=== PATIENT | female | born 2000 | race Caucasian/White ===

== ENCOUNTER 2019-10-23 08:25 | Emergency (ER) | payer MEDICAID, SELFPAY ==
[2019-10-23 08:28] VITALS: BP 136/82; PULSE 84; RESP 18; TEMP 36.4; O2SAT 98; BMI 34.3
--- NOTE | 2019-10-23 08:28 | ED_ITS ---
HPI - Ear Problem General: Chief complaint: Ear Stated complaint: TWO EAR ACHE Time Seen by Provider: 10/23/19 08:28 Source: patient Mode of arrival: ambulatory Limitations: no limitations History of Present Illness: HPI Narrative: Patient comes in today with bilateral ear discomfort and drainage. Patient states symptoms started about 4 days ago. Patient has also had cough and sinus drainage. Patient appears well. Patient appears in mild pain. Associated symptoms: Reports ear or mastoid pain (both, worse on right) Review of Systems General: Reports: 10 or more systems reviewed and unremarkable except in HPI and below ENMT: Reports: ear pain (both, worse on right), ear discharge (both) and Change in hearing (decrease on right) Resp: Reports: non-productive cough PFSH ED PFSH: Statuses (acute, chronic, etc) shown below reflect problem list status as previously entered and may not be historically accurate Social History Smoking and tobacco status: current every day smoker Physical Exam Const: COMMON NORMALS: no apparent distress and oriented x3 GENERAL APPEARANCE: cooperative HENMT: COMMON NORMALS: normocephalic and external nose normal HEAD & SCALP: normal to inspection and normocephalic FACE & SINUS: normal facial exam NOSE: external nose normal GENERAL EAR: hearing not grossly impaired EXTERNAL EAR: Yes external ear abnormal (right external auricle around canal swollen) EXTERNAL AUDITORY CANAL: EAC abnormal (swelling and redness on right side, pusutle noted outer canal at 6 o'clock ) TYMPANIC MEMBRANE: TM abnormal TM laterality: right (obscurred visulaization due to canal drainage) Details: dull and erythematous and left (dull and red with effusion) MOUTH: oral and palatal mucosa normal THROAT: posterior oropharynx normal Eye: COMMON NORMALS: PERRL and EOMs intact bilaterally PUPIL: Yes PERRL Neck/C-Spine: COMMON NORMALS: full ROM and no lymphadenopathy Lymph: LYMPHATIC: no lymphedema noted Chest: COMMONS NORMALS: inspection of chest normal and palpation of chest normal Resp: COMMON NORMALS: normal respiratory effort and clear to auscultation bilaterally AUSCULTATION: clear to auscultation bilaterally Cardio: COMMON NORMALS: regular rate and regular rhythm RATE: regular rate RHYTHM: regular rhythm GI: COMMON NORMALS: normal to inspection, nondistended, normoactive bowel sounds and non-tender : COMMON NORMALS: Yes no CVA tenderness BLADDER/KIDNEY EXAM: Yes no CVA tenderness Back/Pelvis: COMMON NORMALS: no CVA tenderness and thoracic and lumbar spine normal to inspection Extremity: COMMON NORMALS: normal to inspection GENERAL: No edema Neuro: COMMON NORMALS: oriented x3, moves all extremities and no focal motor deficits Psych: COMMON NORMALS: mental status grossly normal and cooperative Skin: COMMON NORMALS: no rashes or lesions noted GENERAL SKIN EXAM: no rashes or lesions noted Course Vital Signs: Vital signs: Vital Signs Temperature 97.6 F 10/23/19 08:28 Pulse Rate 90 10/23/19 08:42 Respiratory Rate 16 10/23/19 08:42 Blood Pressure 129/83 10/23/19 08:42 Pulse Oximetry 99 10/23/19 08:42 MDM - Ear MDM Narrative: Medical decision making narrative: Patient comes in today for concerns of bilateral ear pain for the last 4 days. On exam patient has redness to the ear canal with swelling and drainage on the right side, minimal visualization of the TM is noted. The left ear canal is clear with noticeable redness and dullness to the tympanic membrane. Also noted in the left ear canal on the outer edge is a pustule that is open and draining purulent fluid. Differential diagnosis includes otitis externa, otitis media, sinusitis, cellulitis, abscess, inclusion of cyst. Reviewed exam with patient recommended treatment with oral antibiotics of Bactrim twice a day for 10 days, and Cortisporin otic drops. Patient reports understanding agreed with plan and need for follow-up in 1 week. Or return to the ER as needed. Discharge Plan Discharge Patient Disposition: Home, Self-Care Clinical Impression: Otitis externa Qualifiers: Otitis externa type: diffuse Chronicity: acute Laterality: right Qualified Code(s): H60.311 - Diffuse otitis externa, right ear Otitis media Qualifiers: Otitis media type: suppurative Chronicity: acute Laterality: left Recurrence: not specified as recurrent Spontaneous tympanic membrane rupture: without spontaneous rupture Qualified Code(s): H66.002 - Acute suppurative otitis media without spontaneous rupture of ear drum, left ear Condition: Stable Prescriptions: New Cortisporin-TC 3.3-3-10-0.5 mg/mL drops,suspension 4 drop EAR-BOTH QID Qty: 10 RF: 0 Bactrim DS 800-160 mg tablet 1 tab PO BID 10 Days Qty: 20 RF: 0 No Action 28 mg iron- 800 mcg Tablet 1 tab PO DAILY RF: 0 Discharge Orders: Discharge Order (Routine); Ordered 10/23/19 Ordered By: Aaron Valenzuela Referrals: Andreas Cherry MD [Family Provider] - Discharge Diet: Usual diet Discharge Activity: Resume usual activity Patient Instructions: Otitis Externa (ED) Activity Restrictions/Additional Instructions: Use medications as directed Drink plenty of fluids with medications Keep ears dry with hair pulled back Follow-up with primary care in one week Return to ER for high fever or new concerns Coding Level of Care Code ED Customer Contact Specialist for Jeramy Fwd Exam Problem Focused
[2019-10-23 08:42] VITALS: BP 129/83; PULSE 90; RESP 16; O2SAT 99
== END 2019-10-23 08:55 | disposition home or self-care (01) ==
PROVIDERS: Emergency Provider Nurse Practitioner Family; Family Provider Family Medicine
DX: H66.002 Acute suppurative otitis media without spontaneous rupture of ear drum, left ear (principal); H60.311 Diffuse otitis externa, right ear; F17.210 Nicotine dependence, cigarettes, uncomplicated
CPT/HCPCS: 99281

== ENCOUNTER 2019-12-03 05:31 | Emergency (ER) | payer MEDICAID, SELFPAY ==
[2019-12-03 05:43] VITALS: BP 141/92; PULSE 108; RESP 16; O2SAT 98; BMI 34.3
--- NOTE | 2019-12-03 05:56 | ED_ITS ---
HPI - General Adult General: Chief complaint: General Medical Stated complaint: R THUMB SWELLING Time Seen by Provider: 12/03/19 05:49 Source: patient Mode of arrival: ambulatory Limitations: no limitations History of Present Illness: HPI narrative: 19 yo female who has had right thumb pain and swelling over the last 2 days. pt has a paronychia to right thumb. denies any fevers. denies any worsening or imprving factors. Location: right and upper extremity Radiation: non-radiation Severity: moderate Severity scale (1-10): 5 Quality: sharp Pain Consistency: constant Relieving factors: none Exacerbating factors: none Associated symptoms: Deny chest pain, dyspnea, headache(s), nausea, rash or vomiting Review of Systems Const: Denies: fever, chills, body aches or change in appetite Eyes: Denies: blurry vision or eye discomfort ENMT: Denies: throat pain or dental pain Card: Denies: chest pain Resp: Denies: shortness of breath GI: Denies: abdominal pain, nausea, vomiting or diarrhea : Denies: painful urination Musc: Denies: neck pain or back pain Skin/Breast: Denies: rash Neuro: Denies: headache Psych: Denies: depression Dannie/Lymph: Denies: easy bruising All/Imm: Denies: hives PFSH ED PFSH: Social History Smoking and tobacco status: current every day smoker Female Reproductive History: Date of last menstrual period: 10/21/19 Physical Exam Const: COMMON NORMALS: no apparent distress, oriented x3 and healthy appearing HENMT: COMMON NORMALS: normocephalic and head/scalp atraumatic HEAD & SCALP: normocephalic and atraumatic Eye: COMMON NORMALS: PERRL and EOMs intact bilaterally PUPIL: Yes PERRL Neck/C-Spine: COMMON NORMALS: full ROM and supple Chest: COMMONS NORMALS: inspection of chest normal and palpation of chest normal Resp: COMMON NORMALS: normal respiratory effort, no retractions, no use of accessory muscles and clear to auscultation bilaterally AUSCULTATION: clear to auscultation bilaterally Cardio: COMMON NORMALS: regular rate, regular rhythm and no murmurs RATE: regular rate RHYTHM: regular rhythm GI: COMMON NORMALS: normal to inspection, nondistended, normoactive bowel sounds, soft to palpation, non-tender and no masses PALPATION: Yes soft Extremity: COMMON NORMALS: normal to inspection and full ROM Neuro: COMMON NORMALS: oriented x3, moves all extremities and no focal motor deficits Psych: COMMON NORMALS: mental status grossly normal, thought process normal and cooperative THOUGHT PROCESS: normal thought process Skin: COMMON NORMALS: no rashes or lesions noted and no wounds GENERAL SKIN EXAM: no rashes or lesions noted OTHER: paronychia to right thumb Procedures Abscess I/D Site: hand Side (if applicable): right Local Anesthetic: bupivacaine 0.5% Amount of anesthesia used (mL): 10 Technique: incised with #11 blade Amount of fluid expressed (mL): 2 Course Vital Signs: Vital signs: Vital Signs Pulse Rate 108 H 12/03/19 05:43 Respiratory Rate 16 12/03/19 05:43 Blood Pressure 141/92 12/03/19 05:43 Pulse Oximetry 98 12/03/19 05:43 MDM - General Adult MDM Narrative: Medical decision making narrative: pt presents here with a paronychia of her right thumb. Pt had the paronychia incised and drained. s he tolerated well. will place on bactrim. She is to follow up with her pcp in 2-4 days and return if worsening. Discharge Plan Discharge Patient Disposition: Home, Self-Care Condition: Stable Prescriptions: New Bactrim DS 800-160 mg tablet 1 tab PO BID 10 Days Qty: 20 RF: 0 EC-Naprosyn 500 mg tablet,delayed release (DR/EC) 500 mg PO BID PRN (Reason: pain) Qty: 20 RF: 0 No Action 28 mg iron- 800 mcg Tablet 1 tab PO DAILY RF: 0 Cortisporin-TC 3.3-3-10-0.5 mg/mL drops,suspension 4 drop EAR-BOTH QID Qty: 10 RF: 0 Discharge Orders: Discharge Order (Routine); Ordered 12/03/19 Ordered By: Renu Johnosn Referrals: Andreas Cherry MD [Family Provider] - 4-7 days Discharge Diet: Advance as tolerated Discharge Activity: Resume usual activity Patient Instructions: Paronychia (ED) Coding Level of Care Code ED Psychology Clinician for Chg Fwd Exam Comprehensive
--- NOTE | 2019-12-03 06:12 | PC.NURSE ---
Received patient to Er with complaint of painful, red right thumb that started yesterday. Redness is on the medial nail bed with good sensation but is swollen.
[2019-12-03 06:21] VITALS: BP 132/84; PULSE 88; RESP 14; O2SAT 99
== END 2019-12-03 06:22 | disposition home or self-care (01) ==
PROVIDERS: Emergency Provider Emergency Medicine; Family Provider Family Medicine
DX: L03.011 Cellulitis of right finger (principal); F17.200 Nicotine dependence, unspecified, uncomplicated
CPT/HCPCS: 10060; 99281; 99282

== ENCOUNTER 2020-01-02 23:08 | Emergency (ER) | payer MEDICAID, SELFPAY ==
[2020-01-02 23:13] VITALS: BP 117/85; PULSE 94; RESP 16; TEMP 36.6; O2SAT 97; BMI 36.6
--- NOTE | 2020-01-02 23:21 | ED_ITS ---
HPI - Abdominal Pain General: Chief Complaint: Abdominal Pain Stated Complaint: Abd Pain, N/V Time Seen by Provider: 01/02/20 23:17 Source: patient Mode of arrival: ambulatory Limitations: no limitations History of Present Illness: HPI narrative: Patient comes in with nausea and vomiting starting this evening. Patient reports diffuse abdominal pain. Patient appears mildly unwell. Patient appears in no pain. Patient reports that she may be . Patient denies any fever, blood in the stool or vomit. Patient feels like she is going to have diarrhea but does not have any at this time. Associated Symptoms: Reports nausea and vomiting Related Data: Date of Last Menstrual Period: 10/21/19 Review of Systems General: Reports: 10 or more systems reviewed and unremarkable except in HPI and below GI: Reports: nausea and vomiting PFSH ED PFSH: Social History Smoking and tobacco status: current every day smoker Female Reproductive History: Date of last menstrual period: 10/21/19 Physical Exam Const: COMMON NORMALS: no apparent distress and oriented x3 GENERAL APPEARANCE: cooperative HENMT: COMMON NORMALS: normocephalic, external ears normal, EAC's normal, TM's normal bilaterally and external nose normal HEAD & SCALP: normal to inspection and normocephalic FACE & SINUS: normal facial exam NOSE: external nose normal GENERAL EAR: hearing not grossly impaired EXTERNAL EAR: Yes external ears normal EXTERNAL AUDITORY CANAL: EAC's normal TYMPANIC MEMBRANE: TM's normal bilaterally MOUTH: oral and palatal mucosa normal THROAT: posterior oropharynx normal Eye: COMMON NORMALS: PERRL and EOMs intact bilaterally PUPIL: Yes PERRL Neck/C-Spine: COMMON NORMALS: full ROM and no lymphadenopathy Lymph: LYMPHATIC: no lymphedema noted Chest: COMMONS NORMALS: inspection of chest normal and palpation of chest normal Resp: COMMON NORMALS: normal respiratory effort and clear to auscultation bilaterally AUSCULTATION: clear to auscultation bilaterally Cardio: COMMON NORMALS: regular rate and regular rhythm RATE: regular rate RHYTHM: regular rhythm GI: COMMON NORMALS: soft to palpation PALPATION: Yes soft and Yes tender (mild tenderness, non specific) : COMMON NORMALS: Yes no CVA tenderness BLADDER/KIDNEY EXAM: Yes no CVA tenderness Back/Pelvis: COMMON NORMALS: no CVA tenderness and thoracic and lumbar spine normal to inspection Extremity: COMMON NORMALS: normal to inspection GENERAL: No edema Neuro: COMMON NORMALS: oriented x3, moves all extremities and no focal motor deficits Psych: COMMON NORMALS: mental status grossly normal and cooperative Skin: COMMON NORMALS: no rashes or lesions noted GENERAL SKIN EXAM: no rashes or lesions noted Course Vital Signs: Vital signs: Vital Signs Temperature 97.9 F 01/02/20 23:13 Pulse Rate 94 01/02/20 23:13 Respiratory Rate 16 01/02/20 23:13 Blood Pressure 117/85 01/02/20 23:13 Pulse Oximetry 97 01/02/20 23:13 MDM - Abdominal Pain MDM Narrative: Medical decision making narrative: Patient comes in this evening with complaints of nausea and vomiting and abdominal discomfort. Exam notes abdomen is soft with some mild tenderness on deep palpation. Patient has hyperactive bowel sounds. Skin is warm and dry color is pink. Vital signs are normal. Differential diagnosis includes gastroenteritis, colitis, urinary tract infection, dehydration. Laboratory values were normal or insignificant. Urinalysis was contaminated with large amount of skin cells. Recommended patient drink plenty of fluids we treated her with 1 L of IV fluid and ondansetron and 1 Lomotil patient had good results and denied any further pain after treatment. Recommended patient go home eat a light diet and return to the ER as needed for high fever or worsening symptoms. Patient reported understanding agreed to plan. Lab Data: Labs: Lab Results 01/02/20 01/02/20 01/02/20 Range/Units 23:22 23:22 23:22 WBC 6.8 (4.5-13.0) 10^3/ uL RBC 4.87 (4.1-5.3) 10^6/u L Hgb 13.3 (11.5-15.3) g/dL Hct 43.0 (37.0-47.0) % MCV 88.3 (81-99) fL MCH 27.3 L (28.0-34.0) pg MCHC 30.9 (30.0-36.0) g/dL RDW 13.2 (12.1-15.1) % Plt Count 284 (130-400) 10^3/c mm MPV 9.8 (7.4-10.4) fL Neut % (Auto) 74.5 % Lymph % (Auto) 12.5 % Sequoyah % (Auto) 10.2 % Eos % (Auto) 2.2 % Baso % (Auto) 0.3 % Neut # (Auto) 5.1 (1.8-8.0) 10^3/u L Lymph # (Auto) 0.9 L (1.5-6.5) 10^3/u L Sequoyah # (Auto) 0.7 (0.2-0.9) 10^3/u L Eos # (Auto) 0.2 (0.0-0.8) 10^3/u L Baso # (Auto) 0.0 (0.0-0.1) 10^3/u L Nucleated RBC % (a uto) 0 % Nucleated RBCs # 0.0 /100WBC Sodium 138 (136-145) mmol/L Potassium 3.8 (3.5-5.1) mmol/L Chloride 101 (98-107) mmol/L Carbon Dioxide 29 (22-29) mmol/L Anion Gap 11.8 (5-19) BUN 7 (6-20) mg/dL Creatinine 0.6 (0.5-0.9) mg/dL GFR Calculation 127.5 (90-130) mL/min Glucose 127 H (65-115) mg/dL Calculated Osmolal ity 283 L (285-295) mOsm/k g Calcium 9.5 (8.5-10.5) mg/dL Total Bilirubin 0.5 (0.15-1.2) mg/dL AST 24 (0-32) U/L ALT 35 H (0-33) U/L Alkaline Phosphata se 92 (35-105) IU/L Total Protein 8.0 (6.6-8.7) g/dL Albumin 4.1 (3.5-5.2) g/dL Globulin 3.9 (1.3-4.6) g/dL Lipase 5 L (13-60) U/L HCG, Qual Negative (Negative) Urine Color (Yellow) Urine Appearance (CLEAR) Urine pH (5-7) Ur Specific Gravit y (1.005-1.030) Urine Protein (Negative) Urine Glucose (UA) (Normal) Urine Ketones (Negative) Urine Blood (Negative) Urine Nitrate (Negative) Urine Bilirubin (NEGATIVE) Urine Urobilinogen (Negative) mg/dL Ur Leukocyte Reema ase (Negative) Urine RBC (0-2) /hpf Urine WBC (0-5) /hpf Ur Squamous Epith Cells (0-5) Urine Bacteria (NONE) 01/03/20 Range/Units 00:14 WBC (4.5-13.0) 10^3/ uL RBC (4.1-5.3) 10^6/u L Hgb (11.5-15.3) g/dL Hct (37.0-47.0) % MCV (81-99) fL MCH (28.0-34.0) pg MCHC (30.0-36.0) g/dL RDW (12.1-15.1) % Plt Count (130-400) 10^3/c mm MPV (7.4-10.4) fL Neut % (Auto) % Lymph % (Auto) % Sequoyah % (Auto) % Eos % (Auto) % Baso % (Auto) % Neut # (Auto) (1.8-8.0) 10^3/u L Lymph # (Auto) (1.5-6.5) 10^3/u L Sequoyah # (Auto) (0.2-0.9) 10^3/u L Eos # (Auto) (0.0-0.8) 10^3/u L Baso # (Auto) (0.0-0.1) 10^3/u L Nucleated RBC % (a uto) % Nucleated RBCs # /100WBC Sodium (136-145) mmol/L Potassium (3.5-5.1) mmol/L Chloride (98-107) mmol/L Carbon Dioxide (22-29) mmol/L Anion Gap (5-19) BUN (6-20) mg/dL Creatinine (0.5-0.9) mg/dL GFR Calculation (90-130) mL/min Glucose (65-115) mg/dL Calculated Osmolal ity (285-295) mOsm/k g Calcium (8.5-10.5) mg/dL Total Bilirubin (0.15-1.2) mg/dL AST (0-32) U/L ALT (0-33) U/L Alkaline Phosphata se (35-105) IU/L Total Protein (6.6-8.7) g/dL Albumin (3.5-5.2) g/dL Globulin (1.3-4.6) g/dL Lipase (13-60) U/L HCG, Qual (Negative) Urine Color Yellow (Yellow) Urine Appearance Cloudy (CLEAR) Urine pH 6 (5-7) Ur Specific Gravit y 1.025 (1.005-1.030) Urine Protein Neg (Negative) Urine Glucose (UA) Norm (Normal) Urine Ketones Negative (Negative) Urine Blood 2+ H (Negative) Urine Nitrate Negative (Negative) Urine Bilirubin Neg (NEGATIVE) Urine Urobilinogen 8 H (Negative) mg/dL Ur Leukocyte Reema ase 2+ H (Negative) Urine RBC 5-10 H (0-2) /hpf Urine WBC 55-80 H (0-5) /hpf Ur Squamous Epith Cells 25-40 H (0-5) Urine Bacteria 1+ H (NONE) Discharge Plan Discharge Patient Disposition: Home, Self-Care Clinical Impression: Gastroenteritis Condition: Stable Prescriptions: New ondansetron HCl 4 mg tablet 4 mg PO Q8H PRN (Reason: nausea and vomiting) Qty: 7 RF: 0 Lomotil 2.5-0.025 mg tablet 1 tab PO Q8H PRN (Reason: diarrhea) Qty: 6 RF: 0 Referrals: Andreas Cherry MD [Family Provider] - Discharge Diet: Advance as tolerated Discharge Activity: Resume usual activity Patient Instructions: Gastroenteritis (ED) Activity Restrictions/Additional Instructions: drink plenty of fluids increase diet as tolerated Avoid greasy, spicy, acidic foods Try clear liquid diet for the next increase slowly to a bland diet over the next three days then return to normal diet Follow-up with primary care in one week as needed Return to ER for high fever, or blood in stool or vomit Coding Level of Care Code ED Gum Rolling Machine Operator for Marileeg Fwd Exam Comprehensive
[2020-01-02 23:32] LABS: Basophils % 0.3 %; Eosinophils # 0.2 10^3/uL (0.0-0.8); Eosinophils % 2.2 %; Hemoglobin 13.3 g/dL (11.5-15.3); Lymphocytes # 0.9 10^3/uL (1.5-6.5); Lymphocytes % 12.5 %; Mean Corpuscular HGB Conc 30.9 g/dL (30.0-36.0); Mean Corpuscular Hemoglobin 27.3 pg (28.0-34.0); Mean Corpuscular Volume 88.3 fL (81-99); Mean Platelet Volume 9.8 fL (7.4-10.4); Monocytes # 0.7 10^3/uL (0.2-0.9); Monocytes % 10.2 %; Neutrophils # 5.1 10^3/uL (1.8-8.0); Neutrophils % 74.5 %; Nucleated Red Blood Cells % 0 %; Platelet Count 284 10^3/cmm (130-400); Red Blood Count 4.87 10^6/uL (4.1-5.3); Red Cell Distribution Width 13.2 % (12.1-15.1); White Blood Count 6.8 10^3/uL (4.5-13.0)
[2020-01-02] MEDS: diphenoxylate/atropine Tablet 1 TAB PO (23:33)
[2020-01-02] MEDS: ondansetron 2 mg/ML SDV 2 mL 4 MG IVP (23:33)
[2020-01-02] MEDS: sodium chloride 0.9% 1,000 ML 999 ML IV (23:34)
--- NOTE | 2020-01-02 23:38 | PC.NURSE ---
Introduced self to patient and initiated vital signs. Patient presents A&O x 4. NAD, ABCs intact, MAEW and agreeable to treatment. Respirations are even and unlabored. Pt states that the chief complaint for the ER visit today is due to abdominal pain which presented at approximately 1000. Pt denies any vision disturbances or lightheadedness. Bed left in lowest position in semi-fowlers with side rails up.Reassured patient of needs and will continue to monitor.
[2020-01-02 23:43] VITALS: BP 125/96; O2SAT 98
[2020-01-02 23:45] VITALS: BP 114/72; O2SAT 99
[2020-01-02 23:45] LABS: HCG, Serum Qual Negative (Negative)
[2020-01-02 23:50] VITALS: BP 114/72; O2SAT 98
[2020-01-02 23:55] VITALS: BP 114/72; O2SAT 99
[2020-01-02 23:56] LABS: Alanine Aminotransferase 35 U/L (0-33); Albumin Level 4.1 g/dL (3.5-5.2); Alkaline Phosphatase 92 IU/L (35-105); Anion Gap 11.8 (5-19); Aspartate Amino Transferase 24 U/L (0-32); Blood Urea Nitrogen 7 mg/dL (6-20); Calcium 9.5 mg/dL (8.5-10.5); Carbon Dioxide 29 mmol/L (22-29); Chloride 101 mmol/L (98-107); Creatinine Clr Calc Pharmacy 156.6531; Globulin 3.9 g/dL (1.3-4.6); Glomerular Filtration Rate 127.5 mL/min (90-130); Glucose 127 mg/dL (65-115); Lipase 5 U/L (13-60); Osmolality Calculated 283 mOsm/kg (285-295); Potassium 3.8 mmol/L (3.5-5.1); Sodium 138 mmol/L (136-145); Total Bilirubin 0.5 mg/dL (0.15-1.2)
[2020-01-03] VITALS (11 sets, daily range): BP systolic 117–131; BP diastolic 64–86; O2SAT 95–100
[2020-01-03 00:37] LABS: Glucose Urine UA Norm (Normal); Ketones Urine Negative (Negative); Protein Urine Neg (Negative); Specific Gravity, Urine 1.025 (1.005-1.030); Urine Appearance Cloudy (CLEAR); Urine Color Yellow (Yellow); pH Urine 6 (5-7)
[2020-01-03 00:38] LABS: Add Urine Culture? No; Add Urine Microscopic? YES; Bacteria Urine 1+; Bilirubin Urine Neg (NEGATIVE); Blood Urine 2+ (Negative); Leukocyte Esterase Urine 2+ (Negative); Nitrate Urine Negative (Negative); Squamous Epithelial Cell Urine 25-40 (0-5); Urobilinogen Urine 8 mg/dL (Negative); WBC Urine 55-80 /hpf (0-5)
== END 2020-01-03 01:01 | disposition home or self-care (01) ==
PROVIDERS: Emergency Provider Nurse Practitioner Family; Family Provider Family Medicine
DX: K52.9 Noninfective gastroenteritis and colitis, unspecified (principal); F17.200 Nicotine dependence, unspecified, uncomplicated
CPT/HCPCS: 12345; 80053; 81001; 83690; 84703; 85025; 96361; 96374; 99283; J2405; J7030

== ENCOUNTER 2020-12-07 22:54 | Outpatient (CLI) | payer MEDICAID, SELFPAY ==
[2020-12-07 23:22] VITALS: BP 127/73; PULSE 114; RESP 15; TEMP 36.6
[2020-12-07 23:23] VITALS: BMI 35.0
[2020-12-07 23:56] VITALS: BP 119/71; PULSE 115
[2020-12-08 00:04] VITALS: BP 120/74; PULSE 117
[2020-12-08 00:15] LABS: Urine Appearance Cloudy (CLEAR); Urine Color Yellow (Yellow); pH Urine 7 (5-7)
[2020-12-08 00:16] LABS: Bilirubin Urine Neg (Negative); Blood Urine Neg (Negative); Glucose Urine UA Norm (Normal); Ketones Urine Negative (Negative); Leukocyte Esterase Urine Trace (Negative); Nitrate Urine Negative (Negative); Protein Urine Neg (Negative); Urobilinogen Urine 1 mg/dL (Negative)
[2020-12-08 00:17] LABS: Bacteria Urine 1+ /hpf; RBC Urine 0-4 /hpf (0-2); WBC Urine 0-4 /hpf (0-5)
[2020-12-08 00:19] VITALS: BP 124/76; PULSE 121
[2020-12-08 00:21] VITALS: PULSE 119; O2SAT 97
[2020-12-08 00:22] LABS: Squamous Epithelial Cell Urine 25-40 /hpf (0-5)
[2020-12-08 00:34] VITALS: BP 125/74; PULSE 125
[2020-12-08 00:43] VITALS: BP 120/70; PULSE 121
[2020-12-08 01:00] VITALS: BP 120/70; PULSE 121; RESP 16; TEMP 36.6; O2SAT 97
== END 2020-12-08 01:05 | disposition home or self-care (01) ==
LOC: OPOB 22:55 → OBGYN 23:01
PROVIDERS: PCP Family Medicine; Visit Provider Family Medicine
DX: O26.899 Other specified pregnancy related conditions, unspecified trimester (principal); Z3A.00 Weeks of gestation of pregnancy not specified; R10.9 Unspecified abdominal pain
CPT/HCPCS: 59025; 81001; 99211

== ENCOUNTER 2021-01-16 14:56 | Inpatient (IN) | payer MEDICAID, SELFPAY ==
[2021-01-16] VITALS (22 sets, daily range): BP systolic 118–182; BP diastolic 71–115; PULSE 85–131; RESP 18; TEMP 35.9–36.7; BMI 38.6
[2021-01-16 15:39] LABS: Basophils # 0.1 10^3/uL (0.0-0.1); Basophils % 0.5 %; Eosinophils # 0.2 10^3/uL (0.0-0.8); Eosinophils % 0.9 %; Hematocrit 36.6 % (37.0-47.0); Hemoglobin 11.3 g/dL (11.5-15.3); Lymphocytes # 2.7 10^3/uL (0.8-4.8); Lymphocytes % 16.3 %; Mean Corpuscular HGB Conc 30.9 g/dL (30.0-36.0); Mean Corpuscular Volume 87.4 fL (81-99); Mean Platelet Volume 11.4 fL (7.4-10.4); Monocytes # 1.3 10^3/uL (0.2-0.9); Monocytes % 7.4 %; Neutrophils # 12.01 10^3/uL (1.8-7.7); Neutrophils % 71.3 %; Nucleated Red Blood Cells % 0.2 %; Platelet Count 377 10^3/cmm (130-400); Red Blood Count 4.19 10^6/uL (4.1-5.3); Red Cell Distribution Width 14.3 % (12.1-15.1); White Blood Count 16.8 10^3/uL (4.0-10.0)
[2021-01-16 15:49] LABS: Amphetamines Screen Urine Positive (Negative); Barbiturates Screen Urine Negative (Negative); Benzodiazepines Screen Urine Negative (Negative); Cocaine Screen Urine Negative (Negative); Opiate Screen Urine Negative (Negative); PCP Screen Urine Negative (Negative); THC Screen Urine Negative (Negative)
--- NOTE | 2021-01-16 17:01 | PC.RESP ---
Smoking Cessation information sent to patient.
[2021-01-16] MEDS: lactated ringers 1,000 ML 999 ML IV (17:08)
[2021-01-16] MEDS: oxytocin 30 UNIT/500 ML BAG 600 UNIT IV (17:27)
[2021-01-16] MEDS: fentaNYL 50 mcg/mL INJ 2mL 100 MCG IVP ×2 (17:46→18:08)
[2021-01-16] MEDS: lidocaine 2% INJ 20 mL INJECTION (17:46)
--- NOTE | 2021-01-16 18:21 | PM.ACPR ---
Procedure/Consent Time out: Time Out Performed: No (The procedure was emergent, and there was not time for a proper timeout.) Procedure Narrative: Dr. Cherry contacted me after an unremarkable delivery of the patient's . The patient is a 20-year-old 2 at 40 weeks and 3 days then unremarkable delivery. After delivery, delivered the placenta. Unfortunately the placenta was only partially delivered. He then attempted to manually extract the placenta. He was able to partially remove the placenta but there was still some part of the placenta that was adherent to the fundus of the of the uterus. I was contacted immediately came to the hospital. I then manually extracted the placenta. After 3 attempts, I was able to remove any remaining placental tissue that I could palpate. I will to palpate all portions of the intrauterine cavity. There was some ratty uterine tissue in the fundus, but no apparent placental tissue. I made one final pass and once again felt no further placental tissue. The bleeding was remarkably minimal during the procedure. The patient had received 100 mcg of fentanyl prior to the procedure. I also gave her 50 mcg of fentanyl as I was finishing up the procedure. Acute Procedures Epistaxis Control: Time out performed: No (The procedure was emergent, and there was not time for a proper timeout.)
--- NOTE | 2021-01-16 18:23 | P.PCNOB_ITS ---
Delivery Note: Date of delivery: January 16, 2021 This 20-year-old 2 now para 2 female with an EDC of 01/14/2021 was seen in the office on the day of delivery and found to be 4 cm dilated and 90+ percent effaced. She was sent to the OB department at [facility] and was yulissa regularly. She quickly dilated to complete her cervical dilatation after spontaneous rupture membranes. The fluid was moderately meconium-stained. At complete cervical dilatation this physician arrived and we pushed for several minutes prior to delivery by spontaneous vaginal livery healthy, viable male . Upon delivery of the head the mouth and nose were suctioned at the perineum following by delivery of the right shoulder followed by the left shoulder posteriorly. There was a nuchal cord x1 which was reduced easily prior to delivery of the shoulders. Cord had 3 blood vessels. The infant was then suctioned again prior to laying the infant on mother's abdomen. The cried well shortly after that. Infant Apgars were 8 and 9 at 1 and 5 minutes respectively and the weighed 7 pounds 10 ounces. After several minutes of moderate traction on the umbilical cord the cord from the placenta and the placenta remained in the room. The patient was given fentanyl a total of 100 mcg and an attempt was made at manual removal of the placenta. The placenta appeared to be adhered at the apex of the uterus and part of the placenta was delivered with some difficulty. At that time this physician had a concern of a possible accreta and Dr. Mitchell was consulted for possible dilatation and curettage. He arrived and with a little bit of work was able to bring what is felt like all the placenta completely out. Please see his note for details. The patient had a very small second-degree midline vaginal with minimal perineal laceration which was repaired with local anesthesia and Vicryl suture. The infant picked up pretty well but began having tachypnea and was found to have oxygen saturations in the mid 80s. This improved with oxygen via CPAP. Presently, however the nurses report baby is completely off oxygen and skin to skin with oxygen saturations in the upper 90s. Estimated blood loss approximately 432 mL. It should be noted that mom's drug screen was positive for amphetamine on admission. Pre-Delivery Course: This patient was followed by this physician throughout her course with no significant problems. However, she was somewhat irregular in showing up to her appointments. She also had a positive urine drug screen for amphetamine maternal blood type was O+ with antibody screen negative. Hepatitis B, hepatitis C, RPR are negative. Rubella is positive and group B strep was negative. Covid testing is pending. Delivery: Spontaneous vaginal delivery with complication of retained placenta. Post-Delivery Status: Patient is presently doing extremely well with minimal bleeding at most. Fundus appears to be firm at this time. A&P Assessment and plan (1) Normal spontaneous vaginal delivery: Patient did well with delivery process and no anesthesia. She had a very small second-degree vaginal laceration was repaired easily with Vicryl suture and local anesthesia. Status: Acute (2) Retained placenta or amniotic membrane after delivery without hemorrhage: Several minutes after delivery, the umbilical cord from the placenta. A manual extraction was attempted by this physician and I was able to remove part of the placenta but not the entire placenta. The placenta was tightly adhered to the apex of the uterus. Dr. Mitchell was consulted for possible dilatation and curettage. However, he was able to come in and slowly manipulate the remainder of the placenta away from the uterine wall. This juan eared to be successful as she not bleeding and will be monitored closely for further bleeding. The patient received approximately 150 mcg of fentanyl for this procedure. Status: Acute Coding Level of Care Code Acute Trade Show Coordinator for Chg Fwd Diagnoses Normal spontaneous vaginal delivery O80 Retained placenta or amniotic membrane after delivery without hemorrhage O73.1
[2021-01-16] MEDS: ibuprofen 800 mg tablet PO (21:40)
[2021-01-16] MEDS: ampicillin 2,000 MG in sodium chloride 0.9% (plus) 50 ML 100 MG IV (21:40)
[2021-01-16] MEDS: benzocaine-menthol 78 gm Canister 1 SPRAY TOPICAL (21:41)
[2021-01-17] VITALS (11 sets, daily range): BP systolic 122–144; BP diastolic 63–87; PULSE 69–103; RESP 14–16; TEMP 36.1–36.5
--- NOTE | 2021-01-17 00:55 | PC.NURSE ---
This RN rounded on pt and infant, found pt in bed with eyes closed holding . This RN attempted to rouse pt, pt opened her eyes, she was educated about not falling asleep in the bed with infant. Infant was placed in the warmer.
[2021-01-17 06:28] LABS: Hematocrit 29.3 % (37.0-47.0); Hemoglobin 8.9 g/dL (11.5-15.3); Mean Corpuscular HGB Conc 30.4 g/dL (30.0-36.0); Mean Corpuscular Volume 88.8 fL (81-99); Mean Platelet Volume 11.1 fL (7.4-10.4); Platelet Count 329 10^3/cmm (130-400); Red Cell Distribution Width 14.1 % (12.1-15.1); White Blood Count 19.7 10^3/uL (4.0-10.0)
--- NOTE | 2021-01-17 07:28 | PM.PN ---
Subjective Subjective: Interval history: The patient has done well overnight. She has had no significant bleeding or tenderness. She has had no fever. She did receive one 2 g dose of ampicillin last evening. Vitals/I&O/Wt Last Vital Signs Temp 97.0 F L 01/17/21 03:24 Pulse 69 01/17/21 05:37 Resp 18 01/16/21 15:29 BP 122/65 01/17/21 05:37 01/16/21 01/17/21 01/17/21 22:59 06:59 14:59 Intake Total 199.8 / 199.8 1350.2 / 1350.2 Balance 199.8 / 199.8 1350.2 / 1350.2 Weight last 48 hrs Weight 98.883 kg Physical Exam Const: COMMON NORMALS: no acute distress, average body habitus, healthy appearing and well nourished HENMT: COMMON NORMALS: moist oral mucous membranes Resp: COMMON NORMALS: normal respiratory effort, No retractions, No use of accessory muscles and clear to auscultation bilaterally AUSCULTATION: clear to auscultation bilaterally Cardio: COMMON NORMALS: regular rate, regular rhythm and No murmurs present (Cardio) RATE: regular rate RHYTHM: regular rhythm GI: COMMON NORMALS: Normal to inspection, nondistended, normoactive bowel sounds present, Soft to palpation and no masses (Fundus is firm and well below the umbilicus.) PALPATION: Yes Soft to palpation Extremity: COMMON NORMALS: normal to inspection, full ROM and no pedal edema Neuro: COMMON NORMALS: moves all extremities, no focal motor deficits and no sensory deficits noted Psych: COMMON NORMALS: cooperative MOOD & AFFECT: Yes depressed mood and Yes anxious Data : 01/17/21 06:15 A&P Assessment and plan (1) Normal spontaneous vaginal delivery: Presently, the patient is doing well. She has mild lochia and no signs of problems or significant bleeding. Status: Acute (2) Retained placenta or amniotic membrane after delivery without hemorrhage: No signs of recurrent bleeding or infection post manipulation to remove the placenta. Because of the trauma and the possible retained products of conception I feel that it is prudent to keep the patient in the hospital overnight to watch for signs of infection or increased bleeding. Status: Acute (3) Methamphetamine abuse: It is unknown how much methamphetamine this patient abuse through the . She did have a positive drug screen for methamphetamine at her first visit with this physician and again upon arrival to the hospital. I had a long discussion with this patient regarding helping her in getting treatment and staying off of methamphetamine. She was told that she probably will not go home with her secondary to her methamphetamine abuse but if she cooperates and gets into a treatment program and stays off drugs she may very well be able to get the back. Status: Acute Attestations Medical Necessity Statement*: This patient delivered by spontaneous vaginal livery yesterday evening. She had retained placenta and required great manipulation to remove the remainder of the placenta. She is at risk for infection and bleeding and therefore she requires 1 more midnight hospital stay. Time Spent in Patient Care: 16 - 35 minutes Coding Level of Care Code Acute Pathology Transcriptionist for [facility] Diagnoses Normal spontaneous vaginal delivery O80 Retained placenta or amniotic membrane after delivery without hemorrhage O73.1 Methamphetamine abuse F15.10
[2021-01-17] MEDS: ibuprofen 800 mg tablet PO ×3 (09:23→22:56)
[2021-01-17] MEDS: docusate sodium 100 mg Capsule PO ×2 (09:24→19:02)
[2021-01-17] MEDS: prenatal vitamin Capsule 1 CAP PO (09:24)
--- NOTE | 2021-01-17 18:38 | PC.NURSE ---
Significant other was educated if he left the department, he would be unable to return to department. He acknowledged understanding.
--- NOTE | 2021-01-17 18:43 | PC.NURSE ---
Entered patient's bathroom, where she was in the bathroom with the door closed. Knocked on door and patient opened the door at the same time. When this magnetic tape typewriter operator entered the bathroom, it smelled like cigarette smoke. Asked patient if she had been smoking in the bathroom. Patient denied smoking in the bathroom. Asked patient why it smelled like cigarette smoke if she hadn't been smoking in there. Patient shrugged her shoulders. Patient stated she was looking for baby's pacifier. Looked in the patient's radiant warmer and in the chair for baby's pacifier and didn't find it. Entered the patient's bathroom and told her the pacifier was not found. Patient then stated I did take a few drags. Educated patient she could not smoke in the hospital. Asked patient if she still had cigarettes and machine heddle cleaner. Patient stated she did, that it was in a container on the counter. Educated patient I was going to remove her cigarettes and machine heddle cleaner, and it would be returned to her when she was discharged.
[2021-01-18 04:01] VITALS: BP 142/72; PULSE 93; TEMP 36.3
--- NOTE | 2021-01-18 07:10 | PM.OBGYDC ---
Discharge Providers SIGNING TEACHER Date of Admission: 01/16/21 14:56 Date of Discharge: 01/18/21 Attending Provider at Admission: Andreas Cherry MD Attending Provider at Discharge: Andreas Cherry MD Primary Care Provider: Andreas Cherry MD Diagnoses at Discharge Discharge Diagnosis (1) Normal spontaneous vaginal delivery: Status: Acute (2) Retained placenta or amniotic membrane after delivery without hemorrhage: Status: Acute (3) Methamphetamine abuse: Status: Acute Reason for Visit Reason for Visit: Labor Hospital Course Hospital Course This patient delivered by spontaneous vaginal delivery healthy, viable male infant. There were no problems with the labor delivery process. The labor was pretty rapid and she did not receive any anesthesia. She did have partially retained placenta which was eventually retrieved and has done well since that time. She has had no signs of infection and no significant bleeding or cramping. She did test positive for methamphetamine and according to family services she will not be going home with her baby. I have discussed at length with this patient that she needs to be compliant with family services and work with the plan to get off the drugs and stay off the drugs that she wants to get her babies back. Information Peripartum Data: Delivery Method: Vaginal Physical Exam Const: COMMON NORMALS: no acute distress and healthy appearing GENERAL APPEARANCE: cooperative and comfortable HENMT: COMMON NORMALS: moist oral mucous membranes Resp: COMMON NORMALS: normal respiratory effort, No retractions, No use of accessory muscles and clear to auscultation bilaterally AUSCULTATION: clear to auscultation bilaterally Cardio: COMMON NORMALS: regular rate, regular rhythm and No murmurs present (Cardio) RATE: regular rate RHYTHM: regular rhythm GI: COMMON NORMALS: Soft to palpation INSPECTION: Yes normal to inspection PALPATION: Yes Soft to palpation and No Tenderness to palpation present (GI) (Fundus is firm and below the umbilicus.) Extremity: GENERAL: No edema Neuro: COMMON NORMALS: CN's II-XII intact bilaterally, no focal motor deficits and no sensory deficits noted Psych: COMMON NORMALS: mental status grossly normal, cooperative and normal affect (Somewhat flat. This is her baseline.) Discharge Data Data Completed and Pending: Pending at discharge Category Date Time Status Pathology: Surgic al [PTH] Routine Pth 01/16/21 18:38 Received Vitals: Last Vital Signs Temp 97.3 F L 01/18/21 04:01 Pulse 93 01/18/21 04:01 Resp 14 01/17/21 11:35 BP 142/72 01/18/21 04:01 Discharge Plan Discharge Patient Disposition: Home Condition: Stable Prescriptions: New docusate sodium [DOK] 100 mg Capsule 100 mg PO BID Qty: 60 RF: 1 ibuprofen 800 mg Tablet 800 mg PO TID Qty: 90 RF: 2 Continued Prena-Tab 65 mg iron- 1 mg Tablet 1 tab PO DAILY RF: 0 Discontinued ranitidine HCl [Zantac] 150 mg Tablet 150 mg PO PRN RF: 0 Discharge Orders: Discharge Order (Routine); Ordered 01/18/21 Ordered By: Andreas Cherry Referrals: Andreas Cherry MD [Primary Care Provider] - 6 Weeks Discharge Diet: Usual diet Discharge Activity: Resume usual activity Patient Instructions: Depression (GEN), Pre-eclampsia and Eclampsia (DC), Bleeding (DC), OB Discharge Report, OB Food/Drug Interaction Guide, OB Home Care Instructions, OB Care at Home, OB Home Care, OB Vaginal Deliveries Discharge Attestations SIGNING TEACHER Time Spent in Discharge Care*: less than 30 min Specific Discharge Activities: Specific discharge activities: educating patient, documenting/other paperwork and evaluating patient/reviewing data Coding Level of Care Code Acute Disease And Insect Control Boss for [facility] Diagnoses Normal spontaneous vaginal delivery O80 Retained placenta or amniotic membrane after delivery without hemorrhage O73.1 Methamphetamine abuse F15.10
[2021-01-18] MEDS: docusate sodium 100 mg Capsule PO (08:47)
[2021-01-18] MEDS: ibuprofen 800 mg tablet PO (08:47)
[2021-01-18] MEDS: prenatal vitamin Capsule 1 CAP PO (08:47)
[2021-01-18 10:29] VITALS: TEMP 36.8
[2021-01-18 10:30] VITALS: BP 144/74; PULSE 84
[2021-01-18 11:35] VITALS: BP 136/91; PULSE 86; TEMP 35.8
[2021-01-18 11:36] VITALS: BP 138/88; PULSE 75
[2021-01-18 11:38] VITALS: RESP 18
--- NOTE | 2021-01-18 11:41 | PC.NURSE ---
Patient rooming in with baby at this time
== END 2021-01-18 11:40 | disposition home or self-care (01) | DRG 806 ==
LOC: OPOB 14:56 → OBGYN 14:56
PROVIDERS: Admitting Provider Family Medicine; PCP Family Medicine; Visit Provider Family Medicine
DX: O99.324 Drug use complicating childbirth (principal); O72.2 Delayed and secondary postpartum hemorrhage; Z37.0 Single live birth; F15.10 Other stimulant abuse, uncomplicated; O77.0 Labor and delivery complicated by meconium in amniotic fluid; O69.2XX0 Labor and delivery complicated by other cord entanglement, with compression, not applicable or unspecified; O70.1 Second degree perineal laceration during delivery; Z3A.40 40 weeks gestation of pregnancy
CPT/HCPCS: 12345; 36415; 59025; 59409; 80306; 85025; 85027; 88307; 96374; 96375; 99211; J0290; J3010

== ENCOUNTER → 2021-03-29 14:36 | Outpatient (BNVA) | payer MEDICAID, SELFPAY | PROVIDERS: PCP Family Medicine; Visit Provider Psychiatry & Neurology Psychiatry | DX: F15.21 Other stimulant dependence, in remission (principal); F17.200 Nicotine dependence, unspecified, uncomplicated | CPT/HCPCS: 99204 ==

== ENCOUNTER 2021-12-26 13:38 | Outpatient (CLI) | payer MEDICAID, SELFPAY ==
--- NOTE | 2021-12-26 13:46 | US_ITS ---
WS: [id number] ULTRASOUND OB COMPLETE TECHNIQUE: Complete ultrasound. CLINICAL INFORMATION: SUPERVISION OF NORMAL COMPARISON: None. FINDINGS: Closed Cervix measures 4.6 CM. Single interuterine gestation is identified with cephalic presentation. Placenta is posterior. Placenta grade 2. Low normal amniotic fluid volume visually. cardiac activity: 153 BPM. AGA: 32w1d SAL by ultrasound: 02/19/2022 Estimated weight: 1944 g., %. BDP: 7.8 cm = 31w1d HC: 29.7 cm = 32w6d AC: 28.3 cm = 32w3d FEMUR LENGTH: 6.2 cm = 32w2d Anatomic survey:Intracranial contents and posterior fossa not well visualized due to gestational age Anatomic survey is otherwise normal. Normal stomach. Kidneys and bladder are normal. Normal 3 vessel cord. Normal 3 vessel cord insertion. Normal 4 chamber heart. Normal spine. US/US OB >= 14 weeks fetus [id number] IMPRESSION: Technically difficult examination. 1. Single intrauterine with visualized cardiac activity. AGA 32w1d w ith SAL 02/19/2022. 2. Presentation is cephalic. 3. Cervix is long and closed measuring 4.6 cm. 4. Single largest vertical pocket amniotic fluid 3.4 cm. Amniotic fluid volume appears low normal visually 5. Intracranial contents and posterior fossa not well visualized due to gestat ional age. 6. anatomic survey is otherwise normal. 7. growth parameters greater than the 95th percentile for gestational ag e.
== END 2021-12-26 13:39 | disposition home or self-care (01) ==
LOC: RAD 13:40
PROVIDERS: PCP Family Medicine; Visit Provider Family Medicine
DX: Z34.83 Encounter for supervision of other normal pregnancy, third trimester (principal)
CPT/HCPCS: 76805

== ENCOUNTER 2022-01-11 16:45 | Outpatient (CLI) | payer MEDICAID, SELFPAY ==
[2022-01-11] VITALS (8 sets, daily range): BP systolic 118–146; BP diastolic 70–92; PULSE 82–100; RESP 16–18; TEMP 36.9; BMI 38.6
[2022-01-11 17:22] LABS: Basophils # 0.1 10^3/uL (0.0-0.1); Basophils % 0.4 %; Eosinophils # 0.3 10^3/uL (0.0-0.8); Eosinophils % 2.3 %; Hematocrit 31.8 % (37.0-47.0); Hemoglobin 10.4 g/dL (11.5-15.3); Lymphocytes # 2.3 10^3/uL (0.8-4.8); Lymphocytes % 19.2 %; Mean Corpuscular HGB Conc 32.7 g/dL (30.0-36.0); Mean Corpuscular Hemoglobin 29.3 pg (28.0-34.0); Mean Corpuscular Volume 89.6 fl (81-99); Mean Platelet Volume 10.6 fL (7.4-10.4); Monocytes % 8.6 %; Nucleated Red Blood Cells % 0 %; Platelet Count 266 10^3/cmm (130-400); Red Blood Count 3.55 10^6/uL (4.1-5.3); Red Cell Distribution Width 14.5 % (12.1-15.1); White Blood Count 11.9 10^3/uL (4.0-10.0)
[2022-01-11 17:25] LABS: Urine Appearance SL Hazy (CLEAR); Urine Color Yellow (Yellow)
[2022-01-11 17:26] LABS: Add Urine Culture? No; Add Urine Microscopic? YES; Bacteria Urine 2+ /hpf; Bilirubin Urine Neg (Negative); Blood Urine Neg (Negative); Glucose Urine UA Norm (Normal); Ketones Urine Negative (Negative); Leukocyte Esterase Urine 1+ (Negative); Nitrate Urine Negative (Negative); Protein Urine Neg (Negative); RBC Urine 0-4 /hpf (0-2); Squamous Epithelial Cell Urine 25-40 /hpf (0-5); Sulfosalicylic Acid Urine Negative (Negative); Urobilinogen Urine Norm (Negative); pH Urine 8 (5-7)
[2022-01-11 17:38] LABS: Amphetamines Screen Urine Positive (Negative); Barbiturates Screen Urine Negative (Negative); Benzodiazepines Screen Urine Negative (Negative); Cocaine Screen Urine Negative (Negative); Opiate Screen Urine Negative (Negative); PCP Screen Urine Negative (Negative); THC Screen Urine Negative (Negative)
[2022-01-11 17:38] LABS: Alanine Aminotransferase 34 U/L (0-33); Albumin Level 2.7 g/dL (3.5-5.2); Alkaline Phosphatase 210 IU/L (35-105); Aspartate Amino Transferase 21 U/L (0-32); Blood Urea Nitrogen 4 mg/dL (6-20); Calcium 8.5 mg/dL (8.5-10.5); Carbon Dioxide 21 mmol/L (22-29); Chloride 107 mmol/L (98-107); Globulin 2.8 g/dL (1.3-4.6); Glomerular Filtration Rate 154.3 mL/min (90-130); Glucose 112 mg/dL (65-115); Osmolality Calculated 286 mOsm/kg (285-295); Sodium 139 mmol/L (136-145); Total Bilirubin 0.2 mg/dL (0.15-1.2); Total Protein 5.5 g/dL (6.6-8.7); Uric Acid 4.8 mg/dL (2.4-5.7)
[2022-01-11 17:39] LABS: Urine Creatinine 40 mg/dL (28-217); Urine Protein Random 10 mg/dL
[2022-01-11 17:40] LABS: UPRO/UCREAT Ratio 0.25 mg/mg CR
== END 2022-01-11 18:35 | disposition home or self-care (01) ==
LOC: OPOB 16:53 → OBGYN 16:55
PROVIDERS: PCP Family Medicine; Visit Provider Family Medicine
DX: O16.9 Unspecified maternal hypertension, unspecified trimester (principal); Z3A.00 Weeks of gestation of pregnancy not specified
CPT/HCPCS: 36415; 59025; 80053; 80306; 81001; 82570; 84156; 84550; 85025; 99211

== ENCOUNTER 2022-02-01 15:50 | Outpatient (CLI) | payer MEDICAID, SELFPAY ==
[2022-02-01] VITALS (7 sets, daily range): BP systolic 132–165; BP diastolic 72–95; PULSE 83–95; BMI 40.3
--- NOTE | 2022-02-01 16:06 | USR_ITS ---
PROCEDURE INFORMATION: Exam: US Biophysical Profile Without Non-Stress Test Exam date and time: 02/01/2022 4:24 PM Age: 21 years old Clinical indication: Condition or disease; Other: ; ; Additional info: Hypertension. Bpp with new, growth, and presentation TECHNIQUE: Imaging protocol: US biophysical profile without non-stress testing. COMPARISON: US OB >= 14 weeks fetus [id number] 12/26/2021 2:05 PM FINDINGS: BIOPHYSICAL PROFILE: breathing movement (BPP): 2 out of 2. body movement (BPP): 2 out of 2. tone (BPP): 2 out of 2. Amniotic fluid (BPP): 2 out of 2. US/US OB BPP wo NST [id number] IMPRESSION: Biophysical profile score is 8 out of 8.
[2022-02-01 16:21] LABS: Basophils % 0.4 %; Eosinophils # 0.2 10^3/uL (0.0-0.8); Eosinophils % 2.4 %; Hematocrit 36.3 % (37.0-47.0); Hemoglobin 11.7 g/dL (11.5-15.3); Lymphocytes # 2.2 10^3/uL (0.8-4.8); Lymphocytes % 22.1 %; Mean Corpuscular HGB Conc 32.2 g/dL (30.0-36.0); Mean Corpuscular Hemoglobin 28.9 pg (28.0-34.0); Mean Corpuscular Volume 89.6 fl (81-99); Mean Platelet Volume 10.5 fL (7.4-10.4); Monocytes % 10.1 %; Neutrophils % 62.8 %; Nucleated Red Blood Cells % 0 %; Platelet Count 278 10^3/cmm (130-400); Red Blood Count 4.05 10^6/uL (4.1-5.3); Red Cell Distribution Width 15.1 % (12.1-15.1)
[2022-02-01 16:36] LABS: Amphetamines Screen Urine Positive (Negative); Barbiturates Screen Urine Negative (Negative); Benzodiazepines Screen Urine Negative (Negative); Cocaine Screen Urine Negative (Negative); Opiate Screen Urine Negative (Negative); PCP Screen Urine Negative (Negative); THC Screen Urine Negative (Negative)
[2022-02-01 16:39] LABS: Add Urine Microscopic? YES; Bilirubin Urine Neg (Negative); Blood Urine Neg (Negative); Glucose Urine UA Norm (Normal); Ketones Urine Negative (Negative); Leukocyte Esterase Urine 2+ (Negative); Nitrate Urine Negative (Negative); Protein Urine Neg (Negative); RBC Urine 0-4 /hpf (0-2); Specific Gravity, Urine 1.005 (1.005-1.030); Squamous Epithelial Cell Urine 25-40 /hpf (0-5); Urine Appearance Hazy (CLEAR); Urine Color Yellow (Yellow); Urobilinogen Urine Neg (Negative); pH Urine 7 (5-7)
[2022-02-01 16:40] LABS: Add Urine Culture? No; Bacteria Urine 1+ /hpf; Mucus Urine 2+ /hpf
[2022-02-01 16:52] LABS: Urine Creatinine 101 mg/dL (28-217)
[2022-02-01 16:53] LABS: UPRO/UCREAT Ratio 0.31 mg/mg CR; Urine Protein Random 31 mg/dL
[2022-02-01 16:56] LABS: Alanine Aminotransferase 37 U/L (0-33); Alkaline Phosphatase 289 IU/L (35-105); Aspartate Amino Transferase 37 U/L (0-32); Blood Urea Nitrogen 6 mg/dL (6-20); Calcium 8.3 mg/dL (8.5-10.5); Carbon Dioxide 22 mmol/L (22-29); Globulin 3.5 g/dL (1.3-4.6); Glomerular Filtration Rate 154.3 mL/min (90-130); Glucose 76 mg/dL (65-115); Total Bilirubin 0.3 mg/dL (0.15-1.2); Total Protein 6.5 g/dL (6.6-8.7); Uric Acid 5.3 mg/dL (2.4-5.7)
[2022-02-01 17:19] LABS: Anion Gap 14.4 (5-19); Chloride 106 mmol/L (98-107); Osmolality Calculated 284 mOsm/kg (285-295); Potassium 3.4 mmol/L (3.5-5.1); Sodium 139 mmol/L (136-145)
--- NOTE | 2022-02-01 18:54 | PC.NURSE ---
Pt to L&D as requested by Dr Wilson for NST, ultrasound, and preEclampsia workup. Pt arrived on unit at 1552, labs drawn, urine obtained. Ultrasound performed, BPP was 8/8, LOLITA 14.5, EFW 7 pounds 11oz, estimated gestation 38 weeks 2 days. Pt was found to have elevated blood pressures ranging from 130s-160s systolic over 80s-100s diastolic. Pt denies any headache, visual disturbance, epigastric pain; but is noted to have 2+ pitting edema to bilateral lower extremities. Pt was found to have a protein/creatinine ratio of 0.31. All other labs were reviewed by Dr Wilson and she discussed all findings, risks of preEclampsia for mother and baby ranging from minor illness to of mother and/or baby and advised pt to be induced due to the new finding of preEclampsia prior to severe features. Pt and significant other refuse induction at this time, and are willing to leave against medical advice. Barbie repeated to this RN and Dr Wilson the risks to mother and baby range from minor sickness to and she understands that she is at risk for seizure, stroke, bleeding, maternal and/or . Barbie refused any further monitoring or vital signs and left the unit at 1850. AMA paper signed by patient with RN and MD present prior to patient leaving.
--- NOTE | 2022-02-01 18:59 | P.TNLD_ITS ---
OB L&D Triage Visit Information: Date of evaluation: 02/01/22 Reason for evaluation: other (Gestational hypertension ) Comments/Additional reason(s) for visit: Sent from clinic for elevated blood pressures with new onset proteinuria She denies RUQ pain, changes in vision, headaches. Reports her LE is the same and has not changed. Denies LOF, vaginal bleeding, cramping/contractions. She reports movement is normal. Evaluation: Baseline heart rate: 140 Variability: Moderate (11-25) monitor accelerations: Present 15x15 monitor decelerations: None Cervical dilation (cm): 1 Cervical effacement (%): 50 station: -3 Laboratory results: Laboratory Tests 02/01/22 02/01/22 02/01/22 16:00 16:00 16:10 WBC 10.0 RBC 4.05 L Hgb 11.7 Hct 36.3 L MCV 89.6 MCH 28.9 MCHC 32.2 RDW 15.1 Plt Count 278 MPV 10.5 H Neut % (Auto) 62.8 Lymph % (Auto) 22.1 [place] % (Auto) 10.1 Eos % (Auto) 2.4 Baso % (Auto) 0.4 Neut # (Auto) 6.30 Lymph # (Auto) 2.2 [place] # (Auto) 1.0 H Eos # (Auto) 0.2 Baso # (Auto) 0.0 Nucleated RBC % (a uto) 0 Nucleated RBCs # 0.0 Sodium Potassium Chloride Carbon Dioxide Anion Gap BUN Creatinine GFR Calculation Glucose Calculated Osmolal ity Uric Acid Calcium Total Bilirubin AST ALT Alkaline Phosphata se Total Protein Albumin Globulin Urine Color Yellow Urine Appearance Hazy A Urine pH 7 Ur Specific Gravit y 1.005 Urine Protein Neg Urine Glucose (UA) Norm Urine Ketones Negative Urine Blood Neg Urine Nitrate Negative Urine Bilirubin Neg Urine Urobilinogen Neg Ur Leukocyte Reema ase 2+ H Urine RBC 0-4 H Urine WBC 5-10 H Ur Squamous Epith Cells 25-40 H Amorphous Sediment Not Reportable Urine Bacteria 1+ H Urine Mucus 2+ U Random Total Pro tein 31 Urine Creatinine 101 Protein/Creatinin Ratio 0.31 Urine Opiates Scre en Ur Barbiturates Sc reen Ur Phencyclidine S crn Ur Amphetamines Sc reen U Benzodiazepines Scrn Urine Cocaine Scre en U Marijuana (THC) Screen 02/01/22 02/01/22 16:10 Unknown WBC RBC Hgb Hct MCV MCH MCHC RDW Plt Count MPV Neut % (Auto) Lymph % (Auto) [place] % (Auto) Eos % (Auto) Baso % (Auto) Neut # (Auto) Lymph # (Auto) [place] # (Auto) Eos # (Auto) Baso # (Auto) Nucleated RBC % (a uto) Nucleated RBCs # Sodium 139 Potassium 3.4 L Chloride 106 Carbon Dioxide 22 Anion Gap 14.4 BUN 6 Creatinine 0.5 GFR Calculation 154.3 H Glucose 76 Calculated Osmolal ity 284 L Uric Acid 5.3 Calcium 8.3 L Total Bilirubin 0.3 AST 37 H ALT 37 H Alkaline Phosphata se 289 H Total Protein 6.5 L Albumin 3.0 L Globulin 3.5 Urine Color Urine Appearance Urine pH Ur Specific Gravit y Urine Protein Urine Glucose (UA) Urine Ketones Urine Blood Urine Nitrate Urine Bilirubin Urine Urobilinogen Ur Leukocyte Reema ase Urine RBC Urine WBC Ur Squamous Epith Cells Amorphous Sediment Urine Bacteria Urine Mucus U Random Total Pro tein Urine Creatinine Protein/Creatinin Ratio Urine Opiates Scre en Negative Ur Barbiturates Sc reen Negative Ur Phencyclidine S crn Negative Ur Amphetamines Sc reen Positive H U Benzodiazepines Scrn Negative Urine Cocaine Scre en Negative U Marijuana (THC) Screen Negative Vital signs: Vital Signs - 24 hr 02/01/22 16:06 02/01/22 16:26 02/01/22 16:46 Pulse Rate 90 83 89 Blood Pressure 148/77 134/86 132/74 02/01/22 17:07 02/01/22 17:27 02/01/22 17:48 Pulse Rate 86 86 95 Blood Pressure 165/95 146/85 161/72 02/01/22 18:07 Pulse Rate 85 Blood Pressure 151/85 Care Comments: 37w3d today by 32 week US not consistent with unknown LMP Final Diagnosis Final Diagnosis (1) Pre-eclampsia in third trimester: Plan: Diagnosis is pre-eclampsia without severe features at this time. She has mildly elevated liver enzymes but less than 2x upper limit. Her protein creatinine ratio is now 0.31 and this is new onset proteinuria. She is not currently exhibiting other severe features. BPs have been majority mild range with 2 severe range pressures however non-consecutive. BPP is 8/8 and NST is reactive. Normal LOLITA with cephalic presentation- US report available in chart. I have discussed all of these findings with the patient including the ultrasound results, lab results, and urine results from today's visit and the diagnosis of pre-eclampsia. I have discussed the risks of pre-eclampsia to the patient including progression to pre-eclampsia with severe features and eclampsia and discussed risk of maternal and/or , risk of maternal seizures, stroke, cardiac disease. I discussed I cannot predict the timeline of this progression. Patient indicates understanding and is able to repeat these risks back to me. I have recommended induction of labor and delivery subsequently and have discussed with the patient this recommendation. Discussed despite poor dating, her 32wk ultrasound, ultrasound today, and fundal height are consistent with term gestation. Patient has refused induction. Patient indicates she would like to see her other children today and is feeling well. She reports she is not ready to have the baby yet. She indicates some difficulty in the decision complicated as her other children are in foster care and she is currently undergoing court proceedings and is hoping her mother will have custody of the children before this baby is born. I have discussed with her these difficulties do not change my recommendation and the best course of action at this time would be induction of labor and delivery of her baby for both maternal and safety. She is again refusing induction and requests to leave AMA. I have discussed with patient this is a break in the physician-patient relationship. It was emphasized care is still available to her. Last BP measurement is 151/85 and mild-range elevated. After initial discussion of induction with patient she refused to be placed back on monitor or have additional vitals taken. Again discussed with patient the potential risks if she chooses to leave and patient indicated understanding. Patient has signed AMA form with both me and Flores Khan RN present. Status: Acute Code(s): O14.93 - Unspecified pre-eclampsia, third trimester (2) Methamphetamine abuse: Plan: UDS again positive for amphetamines today. She has been thoroughly counseled in office the risks of methamphetamine abuse to baby and recommendation for cessation of drug use. Status: Acute Code(s): F15.10 - Other stimulant abuse, uncomplicated Coding Level of Care Code Acute Overnight Cashier for [facility] Diagnoses Pre-eclampsia in third trimester O14.93 Methamphetamine abuse F15.10 Physical Exam Const COMMON NORMALS: no acute distress and alert HENMT OTHER: Poor dentition, teeth missing Chest CHEST: Yes Symmetrical chest wall rise Resp COMMON NORMALS: normal respiratory effort and clear to auscultation bilaterally Cardio COMMON NORMALS: regular rate and regular rhythm Extremity NARRATIVE EXTREMITY EXAM: 1+ pitting edema BLE to mid-mercedes Neuro OTHER: alert Psych OTHER: subdued affect Skin NARRATIVE SKIN EXAM: no rash on visibly exposed area
== END 2022-02-01 18:50 | disposition left against medical advice (07) ==
LOC: OPOB 15:54 → OBGYN 15:56
PROVIDERS: PCP Family Medicine; Visit Provider Family Medicine
DX: O14.93 Unspecified pre-eclampsia, third trimester (principal); F15.10 Other stimulant abuse, uncomplicated; Z3A.37 37 weeks gestation of pregnancy; Z53.29 Procedure and treatment not carried out because of patient's decision for other reasons
CPT/HCPCS: 12345; 36415; 59025; 76819; 80053; 80306; 81001; 82570; 84156; 84550; 85025; 99211

== ENCOUNTER 2022-02-02 17:40 | Inpatient (IN) | payer MEDICAID, SELFPAY ==
[2022-02-02] VITALS (116 sets, daily range): BP systolic 120–188; BP diastolic 64–95; PULSE 68–108; RESP 16; TEMP 36.3–36.5; O2SAT 87–100; BMI 87.4
[2022-02-02 16:13] LABS: Basophils % 0.4 %; Eosinophils # 0.3 10^3/uL (0.0-0.8); Eosinophils % 2.7 %; Hematocrit 34.4 % (37.0-47.0); Hemoglobin 11.4 g/dL (11.5-15.3); Mean Corpuscular HGB Conc 33.1 g/dL (30.0-36.0); Mean Corpuscular Hemoglobin 29.2 pg (28.0-34.0); Mean Corpuscular Volume 88.2 fl (81-99); Monocytes # 0.9 10^3/uL (0.2-0.9); Monocytes % 9.2 %; Neutrophils # 6.54 10^3/uL (1.8-7.7); Neutrophils % 66.3 %; Nucleated Red Blood Cells % 0 %; Platelet Count 263 10^3/cmm (130-400); Red Cell Distribution Width 15.2 % (12.1-15.1); White Blood Count 9.9 10^3/uL (4.0-10.0)
[2022-02-02 16:25] LABS: Amphetamines Screen Urine Positive (Negative); Barbiturates Screen Urine Negative (Negative); Benzodiazepines Screen Urine Negative (Negative); Cocaine Screen Urine Negative (Negative); Opiate Screen Urine Negative (Negative); PCP Screen Urine Negative (Negative); THC Screen Urine Negative (Negative)
[2022-02-02 16:45] LABS: Alanine Aminotransferase 35 U/L (0-33); Alkaline Phosphatase 276 IU/L (35-105); Anion Gap 15.9 (5-19); Aspartate Amino Transferase 30 U/L (0-32); Blood Urea Nitrogen 5 mg/dL (6-20); Carbon Dioxide 20 mmol/L (22-29); Chloride 109 mmol/L (98-107); Globulin 2.6 g/dL (1.3-4.6); Glomerular Filtration Rate 56.2 mL/min (90-130); Glucose 92 mg/dL (65-115); Osmolality Calculated 289 mOsm/kg (285-295); Potassium 3.9 mmol/L (3.5-5.1); Sodium 141 mmol/L (136-145); Total Bilirubin 0.2 mg/dL (0.15-1.2); Total Protein 5.6 g/dL (6.6-8.7)
--- NOTE | 2022-02-02 17:34 | P.HP_ITS ---
Providers/Chief Complaint Admitting Physician: Nannette Wilson DO Primary MANAGER TECHNICAL TRAINING: Nannette Wilson DO Primary Care Provider: Andreas Cherry MD Chief Complaint: induction, pre-eclampsia HPI MANAGER TECHNICAL TRAINING History of Present Illness Barbie Paredes is a 21 year old female presenting for induction after leaving AM yesterday, 02/01/22 and previously refusing induction for pre- eclampsia. She reports she is feeling well other than the swelling in her legs. She does not think it has increased from yesterday but the swelling has continued. She denies RUQ pain, changes in vision, or headaches. She denies LOF, cramping, contractions, change in vaginal discharge, and vaginal bleeding. She reports good movement. Present Details : 3 Para: 2 Date of Last Menstrual Period: 10/21/19 Calculated Date of Delivery: 07/27/20 Gestational Age Based on Last Menstrual Period: 119 Dating criteria OB: based on 3rd trimester US only care: limited care Ultrasounds: abnormal US findings Abnormal OB US findings: 32 week US with visually low normal fluid and growth >95th percentile. Repeat US yesterday 02/01/22 with normal LOLITA. See report in chart. Obstetrical complications: preeclampsia and other (maternal anemia, methamphetamine use, poor care, asymptomatic bacteriuria treated, hypokalemia) Other Details: Past history significant for manual extraction of placenta in prior Labs Blood type OB HPI: O (+) positive Rubella: Immune RPR: Negative GBS: Negative HBsAG: Negative Other Lab Information: Antibody Screen Neg HIV neg UCx Viridans strep- treated with fosfomycin- repeat UCx with Lactobacillus GC/Chlamydia neg Initial H/H on 12/20/21 10.4/30.5- treated with ferrous sulfate UDS positive for amphetamines 12/20/21 1hr GTT 106 GBS negative L&D/Induction Specific History Indication for induction OB: other Other Information: Induction indicated for pre-eclampsia with severe features Non-Delivery Specific History Other Information: At this time plan for transfer of care to cone classifier tender OBGYN, Dr. Cr due to pre-eclampsia with severe features Review of Systems General: Reports: 10 or more systems reviewed and unremarkable except in HPI and below Card: Reports: swelling of feet/ankles Medications/Allergies Home Medications Medication Instructions Recorded Confirmed Last Taken Type ferrous sulfate 325 mg (65 mg 325 mg PO DAILY 02/02/22 02/02/22 Unknown History iron) tablet (Iron (ferrous sulfate)) [id number] 6-dha 02/02/22 Unknown History Allergies Allergy/AdvReac Type Severity Reaction Status Date / Time cephalexin [From Keflex] Allergy ALGY-Rash Verified 02/13/21 12:49 PFSH MANAGER TECHNICAL TRAINING PFSH: Social History Smoking and tobacco status: current every day smoker Other Female Reproductive History: Hx Age of Menarche: 13 Duration of menses: 6-7 days Cycle Length: 24 days Menstrual flow: normal/abnormal: normal Sexual History: Hx Sexually Transmitted Diseases: No Contraception: control method: None History History History 3 Term 2 Miscarriages/Ectopic 0 Living Children 2 Care SAL Calculator Estimated Delivery Date Method Current WG Current Estimate 02/19/22 Ultrasound #1 37w 4d Other Estimates 02/13/22 Ultrasound #2 38w 3d Expected Delivery Route/Plan Vaginal Vitals/I&O/Wt Last Vital Signs Temp 97.3 F L 02/02/22 15:40 Pulse 80 02/02/22 17:19 Resp 16 02/02/22 15:29 BP 125/70 02/02/22 17:19 Weight last 48 hrs Weight 231 lb Weight 509 lb 4.285 oz Physical Exam Const: COMMON NORMALS: no acute distress and alert Resp: COMMON NORMALS: normal respiratory effort, No use of accessory muscles and clear to auscultation bilaterally Cardio: COMMON NORMALS: regular rate, regular rhythm and No murmurs present (Cardio) : OTHER: SVE 2/60/-2, soft, mid-position per RN Extremity: NARRATIVE EXTREMITY EXAM: BLE with 1+ pitting edema to below knee Psych: OTHER: Flat and subdued affect Skin: NARRATIVE SKIN EXAM: no rash on visibly exposed area Data : 02/02/22 15:20 02/02/22 15:20 A&P Assessment and plan (1) Pre-eclampsia, severe: 21yo at 37w4d by 32wk US not consistent with unsure LMP with PMHx meth abuse, prior manual extraction of placenta and hx significant in this for pre-eclampsia, maternal anemia, asymptomatic bacteriuria, poor and late to care, non-compliance with testing presenting (after leaving AMA refusing induction yesterday) for induction today. Initial plan for pit induction due to indication of pre-eclampsia. Labs today resulted and revealed doubling of Creatinine and elevated Cr from 0.5 to 1.2. BPs currently mild range. With new finding of severe feature- plan to transfer care at this time to OBGYN on-call Dr. Cr. I have discussed the case with Dr. Cr and she kindly accepts transfer of care for further management and delivery. Status: Acute (2) Methamphetamine abuse: Positive again on UDS today. She has open DHS case with her other children and have discussed she will need DHS referral during admission as well. Status: Acute (3) Maternal anemia in , antepartum: On ferrous sulfate outpatient. Status: Acute Attestations Medical Necessity Statement*: Barbie Reyes [place] hospital stay will require greater than 2 midnights for induction of labor due to pre-eclampsia with severe features. Time Spent in Patient Care: Greater than 35 minutes Coding Level of Care Code Acute Brim Curler for Chg Fwd Exam Expanded Problem Focused Diagnoses Pre-eclampsia, severe O14.10 Methamphetamine abuse F15.10 Maternal anemia in , antepartum O99.019
[2022-02-02] MEDS: magnesium sulfate premix 4 GM/100 ML PREMIX IV (18:02)
[2022-02-02] MEDS: dextrose 5%-lactated ringers 1,000 ML 125 ML IV (18:02)
[2022-02-02] MEDS: magnesium sulfate premix 20 GM/500 ML BAG IV (18:02)
--- NOTE | 2022-02-02 18:42 | P.HP_ITS ---
Providers/Chief Complaint Admitting Physician: Srinivas Connell MD Primary Care Provider: Andreas Cherry MD Chief Complaint: induction, pre-eclampsia HPI FORENSIC INVESTIGATOR History of Present Illness Ms. Paredes is a 21-year-old 4 para 2-0-1-2 at 37 weeks and 4 days gestation dated by 32 weeks sonogram performed on December 2021. She had late start of care started with Dr. Wilson at 32 weeks. She had very limited care. She was diagnosed with gestational hypertension with elevated blood pressures by Dr. Wilson. She was diagnosed with preeclampsia on 02/01/2022 when she presented to the clinic with elevated blood pressures. She was sent to labor and delivery for evaluation and protein creatinine ratio was noted to be 0.31. At that time Dr. Wilson asked the patient to get admitted for induction however the patient signed out AGAINST MEDICAL ADVICE. She was apparently contacted by the child protective servicenow administrator developer and she was encouraged to come to the hospital for admission. She presented to the hospital on 02/02/2022 at 3 PM. She was initially admitted under Dr. Wilson and [facility] labs were done. Labs are all within normal limits except for elevated ALT, alkaline phosphatase and notably the creatinine had increased from 0.5-1.2. Given this was a severe feature Dr. Wilson contacted me the FORENSIC INVESTIGATOR on-call and transferred care patient to me at 5:20 PM. I came in at once to evaluate the patient. ---> Patient states that she is doing okay and denies headaches, blurry vision, scotomata, visual changes. She does report good movement and states that she has only had light cramping and nothing very significant. She understands induction and she understands the diagnosis but has a few additional questions. Labs Blood type OB HPI: O (+) positive Rubella: Immune RPR: Negative GBS: Negative L&D/Induction Specific History Indication for induction OB: other Medications/Allergies Home Medications Medication Instructions Recorded Confirmed Last Taken Type ferrous sulfate 325 mg (65 mg 325 mg PO DAILY 02/02/22 02/02/22 Unknown History iron) tablet (Iron (ferrous sulfate)) [id number] 6-dha 02/02/22 Unknown History Allergies Allergy/AdvReac Type Severity Reaction Status Date / Time cephalexin [From Keflex] Allergy ALGY-Rash Verified 02/13/21 12:49 PFSH FORENSIC INVESTIGATOR PFSH: Medical History No pertinent past medical history Denies diabetes, asthma, hypertension, seizures, DVT/PE Surgical History No pertinent past surgical history Family History (Updated 02/02/22 @ 18:45 by Srinivas Connell MD) Denies family history of Diabetes Clotting disorder Anesthesia complication Bleeding disorder Lung disease Cancer Hypertension Stroke Supplemental PFSH Information: Tobacco use: Started smoking at the age of 16 and currently smokes half a pack to 1 pack of cigarettes a day Alcohol use: Denies Drug use: Started methamphetamine abuse at the age of 13 and states that the last time she used methamphetamine was in December 2021. Drug screens have been positive as recent as 02/01/2022 and today-02/02/2022 Work status: Does not work Last well woman visit: Never Other Female Reproductive History: Menstrual History Comment: Menarche at age 7 with regular 28-day cycles lasting for 7 days Sexual History: Sexual History Comment: Deferred STD History Comment: Reports having had chlamydia in the past. Denies any other sexually transmitted diseases including herpes. Denies herpes and her partner Contraception: Contraception History Comment: Has used control pills in the past for contraception. Is not sure about what she wants to use for contraception . History History History 4 Term 2 Miscarriages/Ectopic 1 0 Living Children 2 Other History: X 2 SAB X 1 1---> 2---> 3---01/16/2021--> active labor at 40 weeks and 2 days, baby boy weighing 7 pounds [address] Cherry at [facility] over a second-degree perineal tear. Cord from placenta requiring manual removal of placenta which was partly done by Dr. Cherry in the other part done by Dr. Mitchell. 4---current ---- Care SAL Calculator Estimated Delivery Date Method Current WG Current Estimate 02/19/22 Ultrasound #1 37w 4d Other Estimates 02/13/22 Ultrasound #2 38w 3d Expected Delivery Route/Plan Vaginal Vitals/I&O/Wt Last Vital Signs Temp 97.3 F L 02/02/22 15:40 Pulse 90 02/02/22 18:40 Resp 16 02/02/22 17:41 BP 140/80 02/02/22 18:40 Pulse Ox 98 02/02/22 18:35 02/02/22 02/02/22 02/02/22 06:59 14:59 22:59 Output Total 230 / 230 Balance -230 / -230 Weight last 48 hrs Weight 231 lb Weight 509 lb 4.285 oz Physical Exam Narrative: General: well developed, obese, poor dentition Neuro/Psych: alert, oriented to time, place and person. Neck: No thyromegaly Heart: S1-S2 heard, regular rate and rhythm. Lungs: Clear to auscultation bilaterally. Breast: Deferred Abdomen: Soft, obese, gravid Legs: No pedal edema no calf tenderness. Negative Homans sign Back: No CVA tenderness Skin: Normal over abdomen-stretch bradley Cervix-2 cm, 50%, -4, cephalic, moderate consistency EFM: 135, moderate variability, accelerations, no decelerations [place]-irregular contractions Urinary Catheter Management: Jimenez Latex Free: Cath Placed During This Visit: yes Reason for Continuing Indwelling Catheter: Accurate Measurement of Urinary Output in Critically Ill Patients Urinary Catheter Date of Insertion: 02/02/22 Urinary Catheter Time of Insertion: 18:15 Data : 02/02/22 15:20 02/02/22 15:20 Results OB Labs LABS: --- 4 12/20/2021---at 32 weeks Blood type: O positive Antibody screen : Negative Intake CBC: 11.6<10.4/30.5> 322 Cystic fibrosis: Declined Rubella : Immune Hepatitis B surface antigen: Nonreactive Hepatitis C antibody: Not seen RPR: Nonreactive HIV: Nonreactive Drug screen: Positive amphetamines and methamphetamines, negative otherwise Urine culture: 50,000 200,000 Streptococcus viridans NIPT: Too late BUN/creatinine-4/0.5 AST/ALT-24/44 01/01/2022: Gonorrhea: Negative Chlamydia: Negative Pap smear: Not done Quad screen/ AFP: Too late GCT: 106 01/22/2022 GBS: Negative Urine culture: Test of cure: 50,000 200,000 lactobacillus PAP States she has never had a Pap smear OB Ultrasound LMP-unknown 1) 12/26/2021([facility]) AUA-32w1d SAL by sono-02/19/2022 dates ---------------> single live intrauterine , overall anatomy normal except for intracranial structures not well seen, cervix closed measuring 4.6 cm, PARKING RAMP ATTENDANT 3.4 cm, EFW 1944 g, greater than 95th percentile, posterior grade 2 placenta without previa, SL IUP, cephalic 2) 02/01/2022([facility]) -----------> single live intrauterine , posterior fundal grade 2 placenta, LOLITA 14.5 cm, cervix not seen, cephalic, EFW 3474 g, 7 pounds 11 ounces, BPP 8 out of 8 A&P Assessment and plan (1) Pre-eclampsia, severe: Status: Acute Plan ADMISSION DIAGNOSIS: 21-year-old 4 para 2-0-1-2 at 37 weeks and 4 days gestation Preeclampsia with severe features-elevated creatinine of 1.2 Poor care-late start of care at 32 weeks Methamphetamine abuse-we will notify DFS Elevated LFTs-unknown etiology Anemia-hemoglobin of 10.4 on 01/11/2022 Tobacco use in -Patient is being transferred to [place] for preeclampsia with severe features. Patient diagnosed with preeclampsia on 02/01/2022 with a protein creatinine ratio of 0.31. She previously had diagnosis of gestational hypertension. When she presented on 02/01/2022 she had a few severe elevations of blood pressure in the 160s over 90s. She did sign out AMA and did not listen to recommendations for delivery. She returned today. Blood pressures are more in the normal range with occasional elevations into the 140s. No significant elevations. Patient denies any severe symptoms. -Overall normal except for elevated ALT however elevation has been there since at least 2019. Hepatitis B surface antigen negative but will rescreen for hepatitis B and hepatitis C today. -Discussed diagnosis of preeclampsia with severe features. Discussed r ecommendation for delivery. Although patient is early dated by 32 weeks sonogram with patient's for follow-up history and concern for severe preeclampsia I do believe that delivery is indicated. -Discussed with patient that given poor dating she may be earlier than anticipated---34 weeks or she may be closer to 40 weeks--?3 weeks. She understands this. She agrees to the induction and understands possible risk of prematurity. She understands the risks of not induction which could be leading to be clumsier and possible maternal and compromise. -Discussed treatment of severe preeclampsia with magnesium sulfate for seizure prophylaxis. Magnesium levels every 6 hours and we will also repeat CMP every 6 hours -Jimenez catheter with strict I's and O's and magnesium protocol. -Hypertensive protocols for lab work. -Methamphetamine use-drug screen positive-DFS will get involved-visitor information assistant at time of delivery - labs reviewed, -GBS negative -Patient desires nicotine patch-provided -Cervix unfavorable-we will start induction with Cytotec. Cytotec discussed with patient. --Discussed with her in detail usual course of labor, risks of labor including bleeding, infection, damage to surrounding organs, possibility of and its risks and benefits, possibility of vacuum/forceps use, possibility of episiotomy. Risks and benefits for all of these were reviewed with her. Also discussed use of Cytotec/Pitocin for induction/augmentation of labor if needed. Discussed the FDA warning for Cytotec. All her questions were answered to her satisfaction and she has no objection to any of these. Cytotec consents were signed and have been scanned into the chart on 02/02/2022 -N.p.o. except for ice chips -Reassess cervix in 4 hours -All her questions were answered and she agrees with the current plan of care. I spent 45 minutes with the patient in discussion and counseling as documented above This documentation was created by [employer]ide nuclear control operator software (known for inherent nuclear control operator error). Every effort was made to assure accuracy of nuclear control operator. Any obvious errors or omissions should be clarified with the author of the document. Attestations Medical Necessity Statement*: Patient will need to stay at least 2-3 midnights to deliver and recover from delivery. Coding Level of Care Code Acute Pharmaceutical Scientist for Jeramy Ponce Diagnoses Pre-eclampsia, severe O14.10
[2022-02-02] MEDS: miSOPROStol 100 mcg tablet 25 MCG VAGINAL (19:45)
[2022-02-02 21:03] LABS: Add Urine Culture? No; Bacteria Urine TRACE /hpf; Bilirubin Urine Neg (Negative); Blood Urine Neg (Negative); Glucose Urine UA Norm (Normal); Ketones Urine Negative (Negative); Leukocyte Esterase Urine Negative (Negative); Nitrate Urine Negative (Negative); Protein Urine Neg (Negative); RBC Urine 0-4 /hpf (0-2); Squamous Epithelial Cell Urine 0-4 /hpf (0-5); Urine Appearance Clear (CLEAR); Urine Color Yellow (Yellow); Urobilinogen Urine Norm (Negative); WBC Urine 0-4 /hpf (0-5); pH Urine 7 (5-7)
[2022-02-02 21:11] LABS: Urine Creatinine 60 mg/dL (28-217); Urine Protein Random 8 mg/dL
[2022-02-02 21:14] LABS: UPRO/UCREAT Ratio 0.13 mg/mg CR
[2022-02-03] VITALS (413 sets, daily range): BP systolic 125–173; BP diastolic 70–107; PULSE 71–134; RESP 16–17; TEMP 35.6–36.6; O2SAT 77–100
[2022-02-03] MEDS: lactated ringers 1,000 ML 999 ML IV (00:47)
[2022-02-03 00:53] LABS: Alanine Aminotransferase 33 U/L (0-33); Albumin Level 2.7 g/dL (3.5-5.2); Alkaline Phosphatase 247 IU/L (35-105); Aspartate Amino Transferase 26 U/L (0-32); Blood Urea Nitrogen 4 mg/dL (6-20); Calcium 7.2 mg/dL (8.5-10.5); Carbon Dioxide 21 mmol/L (22-29); Chloride 109 mmol/L (98-107); Creatinine Clr Calc Pharmacy 148.7226; Globulin 2.5 g/dL (1.3-4.6); Glomerular Filtration Rate 104.6 mL/min (90-130); Glucose 105 mg/dL (65-115); Osmolality Calculated 287 mOsm/kg (285-295); Sodium 140 mmol/L (136-145); Total Bilirubin 0.2 mg/dL (0.15-1.2); Total Protein 5.2 g/dL (6.6-8.7)
[2022-02-03 01:05] LABS: Magnesium Level (OB Only) 4.6 mg/dL (5.0-7.5)
[2022-02-03 01:40] LABS: Hepatitis B Surface Antigen Non-Reactive (Nonreactive); Hepatitis C Virus Antibody Non-Reactive (Nonreactive)
[2022-02-03] MEDS: miSOPROStol 100 mcg tablet 25 MCG VAGINAL (02:35)
[2022-02-03] MEDS: magnesium sulfate premix 20 GM/500 ML BAG IV ×3 (03:49→21:07)
[2022-02-03 06:33] LABS: Alanine Aminotransferase 26 U/L (0-33); Albumin Level 2.6 g/dL (3.5-5.2); Alkaline Phosphatase 257 IU/L (35-105); Anion Gap 14.1 (5-19); Aspartate Amino Transferase 27 U/L (0-32); Blood Urea Nitrogen 4 mg/dL (6-20); Calcium 6.9 mg/dL (8.5-10.5); Carbon Dioxide 20 mmol/L (22-29); Chloride 110 mmol/L (98-107); Globulin 2.7 g/dL (1.3-4.6); Glucose 93 mg/dL (65-115); Osmolality Calculated 289 mOsm/kg (285-295); Potassium 3.1 mmol/L (3.5-5.1); Sodium 141 mmol/L (136-145); Total Bilirubin 0.2 mg/dL (0.15-1.2); Total Protein 5.3 g/dL (6.6-8.7)
[2022-02-03 06:40] LABS: Magnesium Level (OB Only) 4.6 mg/dL (5.0-7.5)
[2022-02-03] MEDS: potassium chloride ER 20 mEq Tablet 40 MEQ PO (07:38)
[2022-02-03] MEDS: dextrose 5%-lactated ringers 1,000 ML 125 ML IV (07:48)
[2022-02-03] MEDS: oxytocin 30 UNIT/500 ML BAG IV (07:57)
--- NOTE | 2022-02-03 11:44 | P.ANESASSM_ITS ---
Pre-Anesthetic Assessment Height/Weight: Height 1.63 m Weight 104.78 kg Temp Pulse Resp BP Pulse Ox 96.6 F L 93 17 148/77 96 02/03/22 06:14 02/03/22 11:42 02/03/22 07:47 02/03/22 11:42 02/03/22 11:41 Preop Diagnosis: Active Labor Labor Epidural Familial anesthetic complications: None Last intake: dinner the evening prior at 1900 clears - current ice chips Social Tobacco and No alcohol Methamphetamine use. Exam alert, oriented x 3 and clear to auscultation bilaterally Airway Submandibular: within normal limits Cervical ROM: within normal limits Mallampati: Class II Dentition: chipped and full Comments: Comments: very poor dentition History/ROS No significant history except as noted Pulmonary None reported CV/HEM None reported None reported Hepatic None reported GI None reported Metabolic None reported Musc/skel None reported Neuropsych None reported substance abuse. Anesthetic Plan ASA status: 3 Anesthesia: Regional (specify below) Other: Labor Epidural Other Pertinent Information pre-eclampsia, magnesium infusing Medications/Allergies Home Medications Medication Instructions Recorded Confirmed Last Taken Type ferrous sulfate 325 mg (65 mg 325 mg PO DAILY 02/02/22 02/02/22 Unknown History iron) tablet (Iron (ferrous sulfate)) [id number] 6-dha 02/02/22 Unknown History Allergies Allergy/AdvReac Type Severity Reaction Status Date / Time cephalexin [From Keflex] Allergy ALGY-Rash Verified 02/13/21 12:49 Current Medications Generic Name Dose Route Start Last Admin Trade Name Miracle PRN Reason Stop Dose Admin Dextrose/Lactated Ringer's 1,000 mls @ 125 mls/hr 02/02/22 15:30 02/03/22 07:48 Dextrose 5%-Lactated Ringers IV 125 mls/hr .Q8H WAYNE Administration Dextrose/Lactated Ringer's 1,000 mls @ 125 mls/hr 02/02/22 17:45 02/03/22 03:22 Dextrose 5%-Lactated Ringers IV 75 mls/hr .Q8H WAYNE Infusion Magnesium Sulfate 20 gm in 500 mls @ 50 mls/hr 02/02/22 17:45 02/03/22 03:49 Magnesium Sulfate Premix IV 50 mls/hr .Q10H WAYNE Administration Oxytocin 30 unit in 500 mls @ 1 mls/hr 02/03/22 08:00 02/03/22 07:57 Pitocin IV 1 milliunit/min .Q24H WAYNE 1 mls/hr Administration Protocol 1 MILLIUNIT/MIN [facility] Anesthesia Medical History No pertinent past medical history Denies diabetes, asthma, hypertension, seizures, DVT/PE Surgical History No pertinent past surgical history Family History (Updated 02/02/22 @ 18:45 by Srinivas Connell MD) Denies family history of Diabetes Clotting disorder Anesthesia complication Bleeding disorder Lung disease Cancer Hypertension Stroke Supplemental [facility] Information Tobacco use: Started smoking at the age of 16 and currently smokes half a pack to 1 pack of cigarettes a day Alcohol use: Denies Drug use: Started methamphetamine abuse at the age of 13 and states that the last time she used methamphetamine was in December 2021. Drug screens have been positive as recent as 02/01/2022 and today-02/02/2022 Work status: Does not work Last well woman visit: Never Female Reproductive History : 3 Data Anesthesia : 02/02/22 15:20 02/03/22 05:55 Short CBC 02/02/22 Range/Units 15:20 WBC 9.9 (4.0-10.0) 10^3/uL Hgb 11.4 L (11.5-15.3) g/dL Hct 34.4 L (37.0-47.0) % MCV 88.2 (81-99) fl Plt Count 263 (130-400) 10^3/cmm Neut % (Auto) 66.3 % Neut # (Auto) 6.54 (1.8-7.7) 10^3/uL BMP 02/02/22 02/03/22 02/03/22 15:20 00:15 05:55 Sodium 141 140 141 Potassium 3.9 3.0 L 3.1 L Chloride 109 H 109 H 110 H Carbon Dioxide 20 L 21 L 20 L BUN 5 L 4 L 4 L Creatinine 1.2 H 0.7 0.6 Glucose 92 105 93 Calcium 8.0 L 7.2 L 6.9 L Liver Function 02/02/22 02/03/22 02/03/22 Range/Units 15:20 00:15 05:55 Total Bilirubin 0.2 0.2 0.2 (0.15-1.2) mg/dL AST 30 26 27 (0-32) U/L ALT 35 H 33 26 (0-33) U/L Alkaline Phosphatase 276 H 247 H 257 H (35-105) IU/L Albumin 3.0 L 2.7 L 2.6 L (3.5-5.2) g/dL Urine 02/02/22 Range/Units 19:45 Urine Color Yellow (Yellow) Urine Appearance Clear (CLEAR) Urine pH 7 (5-7) Ur Specific [place] 1.010 (1.005-1.030) Urine Protein Neg (Negative) Urine Glucose (UA) Norm (Normal) Urine Ketones Negative (Negative) Urine Nitrate Negative (Negative) Urine Bilirubin Neg (Negative) Ur Leukocyte Esterase Negative (Negative) Urine RBC 0-4 H (0-2) /hpf Urine WBC 0-4 H (0-5) /hpf Blood Bank 02/02/22 15:20 Blood Type O Positive Rho(D) Type Positive Antibody Screen Negative Cardiac Studies: No Data to Display Anesthesia Procedures Epidural Time Out Performed: Yes Consent: from patient, risks and benefits reviewed and patient agrees to proceed Lumbar Level: L3-L4 Epidural position: sitting Epidural procedure: sterile prep of area, 1% lidocaine to numb the area, negative for paresthesia passed, test dose given, 1.5% xylocaine 1:200k epi, placed PCEA, no systemic response, sterile dressing applied, L.U.D. no apparent complications and 0.2% Ropiavacaine @ mls/hr (13) Additional Comments: 100 mcg fentanyl given via epidural.
[2022-02-03] MEDS: carboprost tromethamine 250 mcg/mL Amp IM ×2 (13:04→13:05)
[2022-02-03] MEDS: miSOPROStol 200 mcg Tablet 800 MCG PR (13:05)
[2022-02-03 13:23] LABS: Magnesium Level (OB Only) 5.7 mg/dL (5.0-7.5)
[2022-02-03] MEDS: HYDROcodone-acetaminophen 5-325 mg Tablet 1 TAB PO (13:42)
--- NOTE | 2022-02-03 14:02 | P.PCNOB_ITS ---
Delivery Note: Date of delivery: February 03, 2022 - PRE-DELIVERY DIAGNOSIS: 21-year-old 4 para 2-0-1-2 at 37 weeks and 5 days gestation Preeclampsia with severe features-elevated creatinine of 1.2, elevated blood pressures Poor care-late start of care at 32 weeks Methamphetamine abuse-we will notify DFS Elevated LFTs-unknown etiology Anemia-hemoglobin of 10.4 on 01/11/2022 Tobacco use in POST-DELIVERY DIAGNOSIS: Vaginal delivery on 02/03/2022 Placental abruption- tracing category 1 Preeclampsia with severe features-magnesium sulfate for seizure prophylaxis Methamphetamine abuse/poor care Tobacco use in PROCEDURE: Vaginal delivery on 02/03/2022 ANESTHESIA: Epidural anesthesia DELIVERING PHYSICIAN: Srinivas Cr FACOG PRE-DELIVERY COURSE: Ms. Paredes is a 21-year-old 4 para 2-0-1-2 at 37 weeks and 4 days gestation dated by 32 weeks sonogram performed on December 2021.? She had late start of care started with Dr. Wilson at 32 weeks.? She had very limited care.? She was diagnosed with gestational hypertension with elevated blood pressures by Dr. Wilson.? She was diagnosed with preeclampsia on 02/01/2022 when she presented to the clinic with elevated blood pressures.? She was sent to labor and delivery for evaluation and protein creatinine ratio was noted to be 0.31.? At that time Dr. Wilson asked the patient to get admitted for induction however the patient signed out AGAINST MEDICAL ADVICE.? She was apparently contacted by the child protective medical service representative and she was encouraged to come to the hospital for admission.? She presented to the hospital on 02/02/2022 at 3 PM.? She was initially admitted under Dr. Wilson and [facility] labs were done.? Labs are all within normal limits except for elevated ALT, alkaline phosphatase and notably the creatinine had increased from 0.5-1.2.? Given this was a severe feature Dr. Wilson contacted me the HOME DEMONSTRATOR on-call and transferred care patient to me at 5:20 PM.? I came in at once to evaluate the patient. ------> upon evaluation patient at the very least had preeclampsia based on protein creatinine ratio and given gestational age and elevated blood pressures and increasing creatinine I recommended magnesium sulfate. She was started on magnesium sulfate for seizure prophylaxis and levels were therapeutic. She had adequate urine output during her induction course. Cervix was 2 cm, 50% and -4 station. tracing was category 1. Induction was started with Cytotec placed vaginally at 7:45 PM on 02/02/2022. After for as she was yulissa frequently and she was observed for 2 hours and made no further cervical change and contraction spaced out to every 10 minutes. Second Cytotec was placed at 2:30 AM on 02/03/2022 as she had had made minimal cervical change. At 6:30 AM she was 3 cm, 60% and -3 station. She was allowed to have clears and high-dose Pitocin was started at 8 AM titrated to a maximum of 9 mIU. With this she started having regular contractions and grew uncomfortable. At 10 AM she was 4 cm 80% and -2 station and an epidural was placed and she was comfortable after this. Immediately after the epidural she was noted to be 8 cm, 90% and 0 station--11:30 AM. tracing thus far was category 1. She was noted to be yulissa every 1 to 2 minutes and Pitocin was turned off and she was given a bolus of 250 mm of fluid after which contractions spaced out to every 2 to 3 minutes. Artificial rupture of membranes was performed at 12:27 PM with blood- tinged fluid--questionable meconium. Decision was made to have supervisor partial denture department present. She progressed to fully dilated rapidly after this and was fully dilated at 12:47 PM on 02/03/2022. She was +1 station and set up in lithotomy ready to push. DELIVERY NOTE: She was set up in lithotomy position and was pushing effectively. While she was pushing there were gushes of blood consistent with abruption. tracing continue to remain category 1. She started pushing at 12:51 PM. She was noted to be +3 station and continued pushing well. The head delivered in YOAV position, no nuchal cord was present. The shoulders and rest of the body followed with her next push. The baby's mouth and nose were suctioned and the baby was placed on the mother's belly. Once cord pulsations stopped the cord was clamped and cut. The placenta delivered spontaneously intact with membranes. The fundus was noted to be boggy and uterine massage was performed. Despite this she continued to bleed. She was given a dose of 800 mcg of Cytotec followed by 2 doses of Hemabate and with this and continued uterine massage- uterine tone improved. The fundus was then firm and well contracted. The vagina and cervix were inspected and no cervical or sulcal lacerations were noted. The perineum was noted to be intact except for small abrasion that was hemostatic and not repaired. Baby girl born at 12:56 PM with 9/9, weighing 7 pounds 13 ounces, 20 inches long. Placenta was delivered spontaneously intact with membranes at 1 PM. Cotyledons were intact , centrally inserted umbilical cord with 3 vessels noted. Placenta was sent to pathology Estimated blood loss 400 mL. Complications-none, both baby and mother were left to recover in a stable condition. Mother will be on magnesium sulfate for 24 hours for seizure prophylaxis and diuresis. This documentation was created by [employer] film replacement orderer software (known for inh erent film replacement orderer error). Every effort was made to assure accuracy of film replacement orderer. Any obvious errors or omissions should be clarified with the author of the document. History History History 4 Term 2 Miscarriages/Ectopic 1 0 Living Children 2 Other History: X 2 SAB X 1 1---> 2---> 3---01/16/2021--> active labor at 40 weeks and 2 days, baby boy weighing 7 pounds [address] Cherry at [facility] [place] over a second-degree perineal tear. Cord from placenta requiring manual removal of placenta which was partly done by Dr. Cherry in the other part done by Dr. Mitchell. 4---current ---- Coding Level of Care Code Acute [employer] Math Teacher for Chg Fwd
[2022-02-03] MEDS: ibuprofen 800 mg tablet PO ×2 (16:31→21:01)
--- NOTE | 2022-02-03 17:08 | PC.NURSE ---
pt has rash on left upper thigh measurring 5in x 6 in, pt reports no itching.
[2022-02-03] MEDS: diphenhydrAMINE 50 mg/mL SDV 1mL 25 MG IVP (17:35)
--- NOTE | 2022-02-03 18:26 | PC.NURSE ---
this nurse in room, pt on the phone with father of baby, pt stated, While we are in the hospital we need to act like parents or we will get a bad report.
[2022-02-03 18:41] LABS: Alanine Aminotransferase 25 U/L (0-33); Albumin Level 2.4 g/dL (3.5-5.2); Alkaline Phosphatase 242 IU/L (35-105); Aspartate Amino Transferase 25 U/L (0-32); Blood Urea Nitrogen 3 mg/dL (6-20); Calcium 6.5 mg/dL (8.5-10.5); Carbon Dioxide 20 mmol/L (22-29); Chloride 103 mmol/L (98-107); Glomerular Filtration Rate 154.3 mL/min (90-130); Glucose 192 mg/dL (65-115); Osmolality Calculated 274 mOsm/kg (285-295); Sodium 131 mmol/L (136-145); Total Bilirubin 0.2 mg/dL (0.15-1.2); Total Protein 5.4 g/dL (6.6-8.7)
[2022-02-03 18:47] LABS: Anion Gap 11.1 (5-19); Magnesium Level (OB Only) 5.7 mg/dL (5.0-7.5)
[2022-02-03 18:48] LABS: Potassium 3.1 mmol/L (3.5-5.1)
[2022-02-03] MEDS: dextrose 5%-ns + KCl 40 40 MEQ/1,000 ML BAG 68.5 MEQ IV (20:02)
[2022-02-04] VITALS (194 sets, daily range): BP systolic 114–161; BP diastolic 64–106; PULSE 64–101; TEMP 35.3–36.9; O2SAT 82–100
[2022-02-04 00:46] LABS: Magnesium Level (OB Only) 6.1 mg/dL (5.0-7.5)
[2022-02-04] MEDS: HYDROcodone-acetaminophen 5-325 mg Tablet 1 TAB PO (00:55)
[2022-02-04 03:30] LABS: Hematocrit 28.7 % (37.0-47.0); Hemoglobin 9.5 g/dL (11.5-15.3); Mean Corpuscular HGB Conc 33.1 g/dL (30.0-36.0); Mean Corpuscular Hemoglobin 29.5 pg (28.0-34.0); Mean Corpuscular Volume 89.1 fl (81-99); Mean Platelet Volume 10.6 fL (7.4-10.4); Platelet Count 243 10^3/cmm (130-400); Red Blood Count 3.22 10^6/uL (4.1-5.3)
--- NOTE | 2022-02-04 04:00 | PC.NURSE ---
mom is laying right lateral with bp cuff on right arm.
[2022-02-04] MEDS: magnesium sulfate premix 20 GM/500 ML BAG IV (07:02)
[2022-02-04 07:05] LABS: Potassium 3.5 mmol/L (3.5-5.1)
[2022-02-04 07:10] LABS: Magnesium Level (OB Only) 6.3 mg/dL (5.0-7.5)
--- NOTE | 2022-02-04 09:22 | ANE.PACU2 ---
Inpatient post-anesthesia follow up: Airway intact: Yes Vital signs: Temperature 96.6 F Pulse Rate 81 Respiratory Rate 16 Blood Pressure 138/85 Pulse Oximetry 94 Oxygen Delivery Me thod Room Air Oxygen Flow Rate Fraction of Inspir ed Oxygen Hydration adequate: Yes Nausea and vomiting: No Pain level: 1 Mental status: Baseline
[2022-02-04] MEDS: docusate sodium 100 mg Capsule PO (10:11)
[2022-02-04] MEDS: prenatal vitamin Capsule 1 CAP PO (10:11)
[2022-02-04] MEDS: ibuprofen 800 mg tablet PO ×3 (10:11→21:53)
--- NOTE | 2022-02-04 10:35 | P.MISC_ITS ---
Miscellaneous Note Purpose of Documentation: Social rounding for continuity of care Note: Patient is seen this morning after transfer from my care for pre- eclampsia with severe features to Dr. Cr. She is currently still on magnesium and delivered yesterday after induction. She is sitting comfortably in bed on my visit and exam. She states she is feeling well. She denies pain, states her LE swelling is much better. She is unsure how her vaginal bleeding is at this time. No trial of diet or ambulation due to tx with magnesium infusion at this time. She has had the occasional elevated BP this AM but overall BPs wnl or mild range. On exam she has a flat affect. CV RRR with no murmurs appreciated, Pulm CTAB with normal respiratory effort, abdomen is soft, fundus is firm and below the umbilicus, she has no LE edema. Plan of care is defered to Dr. Cr, for follow-up I will see her in clinic in 1 week for BP check provided current clinical course continues. I have discussed control options briefly with patient and she is unsure what control method she would like but would like to start control post-.
[2022-02-04] MEDS: dextrose 5%-ns + KCl 40 40 MEQ/1,000 ML BAG 75 MEQ IV (10:40)
[2022-02-04 11:54] LABS: Magnesium 6.2 mg/dL (1.7-2.3)
--- NOTE | 2022-02-04 14:09 | P.PN_ITS ---
Subjective Subjective: SUBJECTIVE: Ms. Cordero is doing well today. She is a little groggy from the magnesium sulfate is in and is looking forward to eating regular food. She states that she has very minimal pain and overall has no other questions or concerns other than when she can get the magnesium sulfate stop. She denies headaches, chest pain, shortness of breath, nausea, vomiting, fever, chills. No other concerns OBJECTIVE/PHYSICAL EXAM: Gen.: No acute distress Heart: S1-S2 heard, regular rate and rhythm Lungs: Clear to auscultation bilaterally Abdomen: Soft, fundus firm below umbilicus, Legs: No calf tenderness, +1 bilateral pitting pedal edema ASSESSMENT AND PLAN: 21-year-old 4 para 3-0-1-3 status post vaginal delivery on 02/03/2022, day #1 -Preeclampsia with severe features status post magnesium sulfate-doing well with adequate diuresis -24 hours of magnesium sulfate complete-stop magnesium sulfate discontinue catheter and Hep-Lock IV. Stop magnesium levels -Repeat CBC and CMP tomorrow morning -Hypokalemia-status post replacement with normal potassium-reassess in the mo rning -Mild anemia-stable vital signs -Overall normotensive with occasional mild elevations-we will continue to monitor till tomorrow to ensure that she does not need treatment for blood pressure issues. -Tobacco use-declined nicotine patch -Anticipate discharge home tomorrow if she continues to do well. -Regular diet -Discontinue SCD -All her questions were answered and she agrees with the current plan of care. This documentation was created by [employer] cyber security engineer software (known for inherent cyber security engineer error). Every effort was made to assure accuracy of cyber security engineer. Any obvious errors or omissions should be clarified with the author of the document. Vitals/I&O/Wt Last Vital Signs Temp 97.2 F L 02/04/22 12:24 Pulse 79 02/04/22 13:09 Resp 16 02/03/22 17:41 BP 127/81 02/04/22 12:51 Pulse Ox 98 02/04/22 13:09 02/03/22 02/04/22 02/04/22 22:59 06:59 14:59 Intake Total 449.167 / 869.050 863.050 / 1732.100 636.95 / 636.95 Output Total 4465 / 9671 3580 / 43011 2350 / 2350 Balance -3725.833 / -5955.950 -3056.950 / -9012.900 -1713.05 / -1713.05 Weight last 48 hrs Weight 231 lb Weight 509 lb 4.285 oz Physical Exam Urinary Catheter Management: Jimenez Latex Free: Cath Placed During This Visit: yes, but has since been removed by the nurse Reason for Continuing Indwelling Catheter: Decision to DC Catheter Urinary Catheter Date of Insertion: 02/03/22 Urinary Catheter Time of Insertion: 14:05 Date Urinary Catheter Removed: 02/04/22 Time Urinary Catheter Discontinued: 13:00 Data : 02/04/22 03:05 02/04/22 06:05 Attestations Medical Necessity Statement*: Patient will need to stay for 1-2 more midnights to recover from delivery Coding Level of Care Code Acute Rub[employer] Stamps And Dies Supervisor for Jeramy Ponce
[2022-02-04] MEDS: benzocaine-menthol 78 gm Canister 1 SPRAY TOPICAL (15:38)
[2022-02-05 04:26] VITALS: BP 122/74; PULSE 91
[2022-02-05 04:29] VITALS: TEMP 36.8
[2022-02-05 05:25] LABS: Basophils # 0.1 10^3/uL (0.0-0.1); Basophils % 0.5 %; Eosinophils # 0.3 10^3/uL (0.0-0.8); Hematocrit 26.7 % (37.0-47.0); Hemoglobin 8.6 g/dL (11.5-15.3); Lymphocytes # 2.7 10^3/uL (0.8-4.8); Lymphocytes % 25.6 %; Mean Corpuscular HGB Conc 32.2 g/dL (30.0-36.0); Mean Corpuscular Hemoglobin 29.4 pg (28.0-34.0); Mean Corpuscular Volume 91.1 fl (81-99); Mean Platelet Volume 10.6 fL (7.4-10.4); Monocytes # 0.7 10^3/uL (0.2-0.9); Monocytes % 6.2 %; Neutrophils # 6.71 10^3/uL (1.8-7.7); Neutrophils % 63.8 %; Nucleated Red Blood Cells % 0 %; Platelet Count 255 10^3/cmm (130-400); Red Blood Count 2.93 10^6/uL (4.1-5.3); Red Cell Distribution Width 15.2 % (12.1-15.1); White Blood Count 10.5 10^3/uL (4.0-10.0)
[2022-02-05 05:40] LABS: Alanine Aminotransferase 15 U/L (0-33); Albumin Level 2.3 g/dL (3.5-5.2); Alkaline Phosphatase 184 IU/L (35-105); Anion Gap 12.7 (5-19); Aspartate Amino Transferase 13 U/L (0-32); Blood Urea Nitrogen 8 mg/dL (6-20); Calcium 7.2 mg/dL (8.5-10.5); Carbon Dioxide 24 mmol/L (22-29); Chloride 108 mmol/L (98-107); Globulin 2.8 g/dL (1.3-4.6); Glucose 90 mg/dL (65-115); Osmolality Calculated 290 mOsm/kg (285-295); Potassium 3.7 mmol/L (3.5-5.1); Sodium 141 mmol/L (136-145); Total Bilirubin 0.2 mg/dL (0.15-1.2); Total Protein 5.1 g/dL (6.6-8.7)
--- NOTE | 2022-02-05 07:55 | PM.OBGYDC ---
Discharge Providers CLINICAL SPECIALIST Date of Admission: 02/02/22 17:40 Date of Discharge: 02/05/22 Attending Provider at Admission: Srinivas Connell MD Attending Provider at Discharge: Srinivas Connell MD PRE-DELIVERY DIAGNOSIS: 21-year-old 4 para 2-0-1-2 at 37 weeks and 5 days gestation Preeclampsia with severe features-elevated creatinine of 1.2, elevated blood pressures Poor care-late start of care at 32 weeks Methamphetamine abuse-we will notify DFS Elevated LFTs-unknown etiology Anemia-hemoglobin of 10.4 on 01/11/2022 Tobacco use in POST-DELIVERY DIAGNOSIS: Vaginal delivery on 02/03/2022 Placental abruption- tracing category 1 Preeclampsia with severe features-magnesium sulfate for seizure prophylaxis Methamphetamine abuse/poor care Tobacco use in PROCEDURE: Vaginal delivery on 02/03/2022 ANESTHESIA: Epidural anesthesia DELIVERING PHYSICIAN: Srinivas Cr FACOG PRE-DELIVERY COURSE: Ms. Paredes is a 21-year-old 4 para 2-0-1-2 at 37 weeks and 4 days gestation dated by 32 weeks sonogram performed on December 2021.? She had late start of care started with Dr. Wilson at 32 weeks.? She had very limited care.? She was diagnosed with gestational hypertension with elevated blood pressures by Dr. Wilson.? She was diagnosed with preeclampsia on 02/01/2022 when she presented to the clinic with elevated blood pressures.? She was sent to labor and delivery for evaluation and protein creatinine ratio was noted to be 0.31.? At that time Dr. Wilson asked the patient to get admitted for induction however the patient signed out AGAINST MEDICAL ADVICE.? She was apparently contacted by the child protective route vending machine servicer and she was encouraged to come to the hospital for admission.? She presented to the hospital on 02/02/2022 at 3 PM.? She was initially admitted under Dr. Wilson and [facility] labs were done.? Labs are all within normal limits except for elevated ALT, alkaline phosphatase and notably the creatinine had increased from 0.5-1.2.? Given this was a severe feature Dr. Wilson contacted me the CLINICAL SPECIALIST on-call and transferred care patient to me at 5:20 PM.? I came in at once to evaluate the patient. ------> upon evaluation patient at the very least had preeclampsia based on protein creatinine ratio and given gestational age and elevated blood pressures and increasing creatinine I recommended magnesium sulfate.? She was started on magnesium sulfate for seizure prophylaxis and levels were therapeutic.? She had adequate urine output during her induction course.? Cervix was 2 cm, 50% and -4 station.? tracing was category 1.? Induction was started with Cytotec placed vaginally at 7:45 PM on 02/02/2022.? After for as she was yulissa frequently and she was observed for 2 hours and made no further cervical change and contraction spaced out to every 10 minutes.? Second Cytotec was placed at 2:30 AM on 02/03/2022 as she had had made minimal cervical change.? At 6:30 AM she was 3 cm, 60% and -3 station.? She was allowed to have clears and high-dose Pitocin was started at 8 AM titrated to a maximum of 9 mIU.? With this she started having regular contractions and grew uncomfortable.? At 10 AM she was 4 cm 80% and -2 station and an epidural was placed and she was comfortable after this.? Immediately after the epidural she was noted to be 8 cm, 90% and 0 station--11:30 AM.? tracing thus far was category 1.? She was noted to be yulissa every 1 to 2 minutes and Pitocin was turned off and she was given a bolus of 250 mm of fluid after which contractions spaced out to every 2 to 3 minutes.? Artificial rupture of membranes was performed at 12:27 PM with blood-tinged fluid--questionable meconium.? Decision was made to have foreign exchange position clerk present.? She progressed to fully dilated rapidly after this and was fully dilated at 12:47 PM on 02/03/2022.? She was +1 station and set up in lithotomy ready to push. DELIVERY? NOTE: She was set up in lithotomy position and was pushing effectively.? While she was pushing there were gushes of blood consistent with abruption.? tracing continue to remain category 1.? She started pushing at 12:51 PM.? She was noted to be? +3 station and continued pushing well. The head delivered in YOAV position, no nuchal cord was present. The shoulders and rest of the body followed with her next push. The baby's mouth and nose were suctioned and the baby was placed on the mother's belly.? Once cord pulsations stopped the cord was clamped and cut.? The placenta delivered spontaneously intact with membranes. The fundus was noted to be boggy and uterine massage was performed.? Despite this she continued to bleed.? She was given a dose of 800 mcg of Cytotec followed by 2 doses of Hemabate and with this and continued uterine massage-uterine tone improved.? The fundus was then firm and well contracted.? The vagina and cervix were inspected and no cervical or sulcal lacerations were noted.? The perineum was noted to be intact except for small abrasion that was hemostatic and not repaired. Baby girl born at 12:56 PM with 9/9, weighing 7 pounds 13 ounces, 20 inches long. Placenta was delivered spontaneously intact with membranes at 1 PM. Cotyledons were intact , centrally inserted umbilical cord with 3 vessels noted.? Placenta was sent to pathology Estimated blood loss 400 mL. Complications-none, both baby and mother were left to recover in a stable condition. HOSPITAL COURSE: She underwent an uncomplicated vaginal delivery on 02/03/2022. She was continued on magnesium sulfate for 24 hours and magnesium levels were therapeutic and blood pressure was within normal range. She had no preeclamptic symptoms and diuresed well. She had Jimenez catheter and remained n.p.o. during this time. She was hypokalemic and potassium was replaced and follow-up levels were within normal limits. After 24 hours catheter IV were discontinued and she did well on day 1 and was ambulating well, tolerating regular diet, voiding freely, passing flatus. She was formula feeding without difficulty and bonding well with her daughter. Pain was well-controlled with by mouth pain medication. She denied nausea, vomiting, fever, chills, shortness of breath, leg pain. She had moderate vaginal bleeding. Hemoglobin was 9.1 on day 1. On day # 2 she continued to do well with stable vital signs and stable hemoglobin at 8.6 . Her blood pressure remained within normal limits after discontinuing magnesium sulfate. She was discharged home on day 2 in a stable condition. Warning signs for endometritis, mastitis, DVT/PE, preeclampsia were reviewed with her. Post delivery activity restrictions were also reviewed with her at all her questions were answered to her satisfaction. She is uncertain about what she wants to use for contraception but desired Depo-Provera. She was given Depo-Provera on 02/05/2022 prior to discharge. She will discuss options further with her primary care OB-Dr. Wilson EXAM AT DISCHARGE: Gen.: No acute distress Heart: S1-S2 heard, regular rate and rhythm Lungs: Clear to auscultation bilaterally Abdomen: Soft, fundus firm below umbilicus Legs: No calf tenderness, +1 bilateral pitting pedal edema. CONDITION AT DISCHARGE: Stable This documentation was created by [employer] asphalt surface heater operator software (known for inherent asphalt surface heater operator error). Every effort was made to assure accuracy of asphalt surface heater operator. Any obvious errors or omissions should be clarified with the author of the document. Primary Care Provider: Andreas Cherry MD Diagnoses at Discharge Discharge Diagnosis (1) Pre-eclampsia, severe: Status: Acute Reason for Visit Reason for Visit: induction, pre-eclampsia Information Peripartum Data: Infant Delivery Method: Vaginal Physical Exam Urinary Catheter Management: Jimenez Latex Free: Cath Placed During This Visit: yes, but has since been removed by the nurse Reason for Continuing Indwelling Catheter: Decision to DC Catheter Urinary Catheter Date of Insertion: 02/03/22 Urinary Catheter Time of Insertion: 14:05 Date Urinary Catheter Removed: 02/04/22 Time Urinary Catheter Discontinued: 13:00 History History History 4 Term 2 Miscarriages/Ectopic 1 0 Living Children 2 Other History: X 2 SAB X 1 1---> 2---> 3---01/16/2021--> active labor at 40 weeks and 2 days, baby boy weighing 7 pounds [address] [place] [facility] [place] second-degree perineal tear. Cord from placenta requiring manual removal of placenta which was partly done by Dr. Cherry in the other part done by Dr. Mitchell. 4---current ---- Discharge Data Studies Completed and Pending Pending at discharge Category Date Time Status Amphetamine Confirmation, GC/M Routine Lab 02/02/22 19:45 Received Hepatitis C RNA Viral Load Qnt Stat Lab 02/03/22 00:15 Received Pathology: Surgical [PTH] Routine Pth 02/03/22 13:21 Ordered Laboratory Results WBC 10.5 10^3/uL (4.0-10.0) H 02/05/22 05:08 RBC 2.93 10^6/uL (4.1-5.3) L 02/05/22 05:08 Hgb 8.6 g/dL (11.5-15.3) L 02/05/22 05:08 Hct 26.7 % (37.0-47.0) L 02/05/22 05:08 MCV 91.1 fl (81-99) 02/05/22 05:08 MCH 29.4 pg (28.0-34.0) 02/05/22 05:08 MCHC 32.2 g/dL (30.0-36.0) 02/05/22 05:08 RDW 15.2 % (12.1-15.1) H 02/05/22 05:08 Plt Count 255 10^3/cmm (130-400) 02/05/22 05:08 MPV 10.6 fL (7.4-10.4) H 02/05/22 05:08 Neut % (Auto) 63.8 % 02/05/22 05:08 Lymph % (Auto) 25.6 % 02/05/22 05:08 Stark % (Auto) 6.2 % 02/05/22 05:08 Eos % (Auto) 3.0 % 02/05/22 05:08 Baso % (Auto) 0.5 % 02/05/22 05:08 Neut # (Auto) 6.71 10^3/uL (1.8-7.7) 02/05/22 05:08 Lymph # (Auto) 2.7 10^3/uL (0.8-4.8) 02/05/22 05:08 Stark # (Auto) 0.7 10^3/uL (0.2-0.9) 02/05/22 05:08 Eos # (Auto) 0.3 10^3/uL (0.0-0.8) 02/05/22 05:08 Baso # (Auto) 0.1 10^3/uL (0.0-0.1) 02/05/22 05:08 Nucleated RBC % (auto) 0 % 02/05/22 05:08 Nucleated RBCs # 0.0 /100WBC 02/05/22 05:08 Sodium 141 mmol/L (136-145) 02/05/22 05:08 Potassium 3.7 mmol/L (3.5-5.1) 02/05/22 05:08 Chloride 108 mmol/L (98-107) H 02/05/22 05:08 Carbon Dioxide 24 mmol/L (22-29) 02/05/22 05:08 Anion Gap 12.7 (5-19) 02/05/22 05:08 BUN 8 mg/dL (6-20) 02/05/22 05:08 Creatinine 0.6 mg/dL (0.5-0.9) 02/05/22 05:08 GFR Calculation 125.0 mL/min (90-130) 02/05/22 05:08 Glucose 90 mg/dL (65-115) 02/05/22 05:08 Calculated Osmolality 290 mOsm/kg (285-295) 02/05/22 05:08 Calcium 7.2 mg/dL (8.5-10.5) L 02/05/22 05:08 Magnesium 6.2 mg/dL (1.7-2.3) H* 02/04/22 11:00 Total Bilirubin 0.2 mg/dL (0.15-1.2) 02/05/22 05:08 AST 13 U/L (0-32) 02/05/22 05:08 ALT 15 U/L (0-33) 02/05/22 05:08 Alkaline Phosphatase 184 IU/L (35-105) H 02/05/22 05:08 Total Protein 5.1 g/dL (6.6-8.7) L 02/05/22 05:08 Albumin 2.3 g/dL (3.5-5.2) L 02/05/22 05:08 Globulin 2.8 g/dL (1.3-4.6) 02/05/22 05:08 Urine Color Yellow (Yellow) 02/02/22 19:45 Urine Appearance Clear (CLEAR) 02/02/22 19:45 Urine pH 7 (5-7) 02/02/22 19:45 Ur Specific Lovilia 1.010 (1.005-1.030) 02/02/22 19:45 Urine Protein Neg (Negative) 02/02/22 19:45 Urine Glucose (UA) Norm (Normal) 02/02/22 19:45 Urine Ketones Negative (Negative) 02/02/22 19:45 Urine Blood Neg (Negative) 02/02/22 19:45 Urine Nitrate Negative (Negative) 02/02/22 19:45 Urine Bilirubin Neg (Negative) 02/02/22 19:45 Urine Urobilinogen Norm mg/dL (Negative) 02/02/22 19:45 Ur Leukocyte Esterase Negative (Negative) 02/02/22 19:45 Urine RBC 0-4 /hpf (0-2) H 02/02/22 19:45 Urine WBC 0-4 /hpf (0-5) H 02/02/22 19:45 Ur Squamous Epith Cells 0-4 /hpf (0-5) H 02/02/22 19:45 Amorphous Sediment Not Reportable 02/02/22 19:45 Urine Bacteria Trace /hpf (NONE) 02/02/22 19:45 U Random Total Protein 8 mg/dL 02/02/22 19:45 Urine Creatinine 60 mg/dL (28-217) 02/02/22 19:45 Protein/Creatinin Ratio 0.13 mg/mg CR 02/02/22 19:45 Urine Opiates Screen Negative ng/mL (Negative) 02/02/22 15:20 Ur Barbiturates Screen Negative ng/mL (Negative) 02/02/22 15:20 Ur Phencyclidine Scrn Negative ng/mL (Negative) 02/02/22 15:20 Ur Amphetamines Screen Positive ng/mL (Negative) H 02/02/22 15:20 U Benzodiazepines Scrn Negative ng/mL (Negative) 02/02/22 15:20 Urine Cocaine Screen Negative ng/mL (Negative) 02/02/22 15:20 U Marijuana (THC) Screen Negative ng/mL (Negative) 02/02/22 15:20 Hep Bs Antigen Non-reactive (Nonreactive) 02/03/22 00:15 Hepatitis C Antibody Non-reactive (Nonreactive) 02/03/22 00:15 Blood Type O Positive 02/02/22 15:20 Rho(D) Type Positive 02/02/22 15:20 Antibody Screen Negative 02/02/22 15:20 Vitals Last Vital Signs Temp 98.3 F 02/05/22 04:29 Pulse 91 02/05/22 04:26 Resp 16 02/03/22 17:41 BP 122/74 02/05/22 04:26 Pulse Ox 98 02/04/22 13:09 Discharge Plan Discharge Patient Disposition: Home Condition: Stable Prescriptions: New docusate sodium 100 mg Capsule 100 mg PO BID PRN (Reason: constipation) Qty: 30 0RF ibuprofen 800 mg tablet 800 mg PO Q8H Qty: 30 0RF Continued Iron (ferrous sulfate) 325 mg (65 mg iron) Tablet 325 mg PO DAILY 0RF [id number] 6-dha 0RF Discharge Orders: Discharge Order (Routine); Ordered 02/05/22 Ordered By: Srinivas Connell Referrals: Nannette Wilson DO [Physician] - (1 week blood pressure check in 6-week visit) Discharge Diet: Regular Discharge Activity: Limit activity as instructed Patient Instructions: Opioid Safety Activity Restrictions/Additional Instructions: No heavy lifting for 6 weeks, pelvic rest for 6 weeks Follow-up with Dr. Wilson--1 week blood pressure check in 6-week visit. Emergency room precautions reviewed Discharge Attestations CLINICAL SPECIALIST Time Spent in Discharge Care*: greater than 30 min Coding Level of Care Code Acute Sports Development Officer for g Fwd Diagnoses Pre-eclampsia, severe O14.10
[2022-02-05] MEDS: ibuprofen 800 mg tablet PO (09:44)
[2022-02-05] MEDS: prenatal vitamin Capsule 1 CAP PO (09:44)
[2022-02-05] MEDS: docusate sodium 100 mg Capsule PO (09:45)
[2022-02-05] MEDS: medroxyprogesterone 150 mg/ml SDV 1 mL IM (09:46)
[2022-02-05 09:50] VITALS: BP 143/92; PULSE 72
[2022-02-05 09:52] VITALS: BP 136/90; PULSE 90
[2022-02-05 10:11] VITALS: BP 136/90; PULSE 90; RESP 16; TEMP 36.6
[2022-02-07 07:44] LABS: HEP C RNA Viral Load Quant <1.18 NOT DETECTED Log IU/mL (NOT DETECTED); HEP C RNA Viral Load Quant <15 NOT DETECTED IU/mL (NOT DETECTED)
[2022-02-08 17:21] LABS: Amphetamine 1400 ng/mL; Methamphetamine 2800 ng/mL; Methylenedioxyamphetamine negative; Methylenedioxyethylamphetamine negative; Methylenedioxymethamphetamine negative
== END 2022-02-05 09:55 | disposition home or self-care (01) | DRG 807 ==
LOC: OPOB 17:44 → OBGYN 17:44
PROVIDERS: Family Medicine; Admitting Provider Obstetrics & Gynecology; PCP Family Medicine; Visit Provider Obstetrics & Gynecology
DX: O14.14 Severe pre-eclampsia complicating childbirth (principal); Z37.0 Single live birth; O99.02 Anemia complicating childbirth; D64.9 Anemia, unspecified; O99.324 Drug use complicating childbirth; F15.90 Other stimulant use, unspecified, uncomplicated; O99.334 Smoking (tobacco) complicating childbirth; F17.210 Nicotine dependence, cigarettes, uncomplicated; O90.89 Other complications of the puerperium, not elsewhere classified; E87.6 Hypokalemia; O45.93 Premature separation of placenta, unspecified, third trimester; Z3A.37 37 weeks gestation of pregnancy
CPT/HCPCS: 12345; 36415; 51702; 59025; 59409; 80053; 80306; 80324; 80359; 81001; 82570; 83735; 84132; 84156; 85025; 85027; 86803; 86850; 86900; 87340; 87522; 88307; 96372; J1050; J1200; J2795; J3010; J3475

== ENCOUNTER 2023-01-09 05:27 | Emergency (ER) | payer MEDICAID, SELFPAY ==
[2023-01-09 05:37] VITALS: BP 127/89; PULSE 104; RESP 22; TEMP 36.7; O2SAT 97; BMI 32.5
--- NOTE | 2023-01-09 05:37 | W.ED.DENTAL ---
HPI - Dental/Oral General: Stated complaint: Tooth Pain Time Seen by Provider: 01/09/23 05:30 Source: patient Mode of arrival: ambulatory Limitations: no limitations History of Present Illness: 22-year-old female states she been having left upper dental pain over the last 4 to 5 days she has a history of multiple dental caries in the past she states she been try to get into the dentist was not able to she rates her pain an 8 out of 10 she has no trismus she denies any fevers she denies any worsening improving factors. Associated symptoms: Denies fever(s) Review of Systems Const: Denies: fever(s), chills, body aches or change in appetite Eyes: Denies: blurry vision or eye discomfort ENMT: Reports: dental pain Card: Denies: chest pain Resp: Denies: dyspnea GI: Denies: abdominal pain, nausea, vomiting or diarrhea : Denies: dysuria Musc: Denies: neck pain or back pain Skin/Breast: Denies: rash Neuro: Denies: headache(s) Psych: Denies: depression Dannie/Lymph: Denies: easy bruising All/Imm: Denies: urticaria PFSH ED PFSH: Medical History No pertinent past medical history Denies diabetes, asthma, hypertension, seizures, DVT/PE Surgical History No pertinent past surgical history Family History Denies family history of Diabetes Clotting disorder Anesthesia complication Bleeding disorder Lung disease Cancer Hypertension Stroke Physical Exam Const: COMMON NORMALS: no acute distress and patient oriented x3 HENMT: COMMON NORMALS: normocephalic HEAD & SCALP: normocephalic OTHER: Very poor dentition tenderness of left upper molar no abscess no trismus Eye: COMMON NORMALS: conjunctivae normal CONJUNCTIVA: Yes conjunctivae normal Neck/C-Spine: COMMON NORMALS: supple and no meningeal signs Chest: COMMONS NORMALS: normal inspection of the chest Resp: COMMON NORMALS: normal respiratory effort Cardio: COMMON NORMALS: regular rate RATE: regular rate GI: INSPECTION: Yes normal to inspection Extremity: COMMON NORMALS: normal to inspection Neuro: COMMON NORMALS: patient oriented x3 MENINGEAL SIGNS: Yes no meningeal signs Psych: COMMON NORMALS: mental status grossly normal Skin: COMMON NORMALS: no rashes or lesions noted GENERAL SKIN EXAM: no rashes or lesions noted MDM - Dental/Oral Medical Decision Making Patient presents here with left upper dental pain she has very poor dentition no signs of abscess or trismus we will prescribe patient Naprosyn along with antibiotics she is to follow-up with a dentist and return if worsening she understands agrees to plan Discharge Plan Discharge Patient Disposition: Home Clinical Impression: Pain, dental Condition: Stable Prescriptions: New Naprosyn 500 mg tablet 500 mg PO BID PRN (Reason: pain) Qty: 20 0RF Augmentin 500-125 mg tablet 1 tab PO DAILY Qty: 14 0RF No Action Iron (ferrous sulfate) 325 mg (65 mg iron) Tablet 325 mg PO DAILY [id number] 6-dha ibuprofen 800 mg tablet 800 mg PO Q8H Qty: 30 0RF docusate sodium 100 mg Capsule 100 mg PO BID PRN (Reason: constipation) Qty: 30 0RF Discharge Orders: Discharge ED (Routine); Ordered 01/09/23 Ordered By: Renu Johnson Discharge Diet: Advance as tolerated Discharge Activity: Resume usual activity Patient Instructions: Toothache (ED) Coding Level of Care Code ED Rn Clinical Quality for Jeramy Ponce
[2023-01-09] MEDS: amoxicillin-clav 875-125 mg Tablet 1 TAB PO (05:42)
[2023-01-09] MEDS: HYDROcodone-acetaminophen 7.5-325 mg Tablet 1 TAB PO (05:42)
== END 2023-01-09 05:47 | disposition home or self-care (01) ==
PROVIDERS: Emergency Provider Emergency Medicine
DX: K08.89 Other specified disorders of teeth and supporting structures (principal)
CPT/HCPCS: 99283

== ENCOUNTER 2023-02-06 20:17 | Emergency (ER) | payer MEDICAID, SELFPAY ==
[2023-02-06 20:18] VITALS: BP 117/79; PULSE 92; RESP 17; TEMP 36.3; O2SAT 100; BMI 34.3
--- NOTE | 2023-02-06 20:33 | ED_ITS ---
HPI - Skin/Abscess/Foreign Bdy General: Chief complaint: Skin/Abscess/Foreign Body Stated complaint: nose pain Time Seen by Provider: 02/06/23 20:29 History of Present Illness: Patient comes in for infection of a nasal piercing. Patient has a left nostril piercing that started becoming sore about 3 to days ago and then started having increased redness and purulent drainage starting last night. The piercing has been absorbed into the swelling of the skin and patient has been unable to remove it. Patient appears nontoxic. Patient appears in mild discomfort. Patient has allergy to Keflex. Patient denies any chronic medical problems. Associated symptoms: Deny fever(s) or vomiting Review of Systems Const: Denies: fever(s) Resp: Denies: dyspnea GI: Denies: vomiting : Denies: difficulty voiding Skin/Breast: Reports: changing lesions PFSH ED PFSH: Medical History No pertinent past medical history Denies diabetes, asthma, hypertension, seizures, DVT/PE Surgical History No pertinent past surgical history Family History Denies family history of Diabetes Clotting disorder Anesthesia complication Bleeding disorder Lung disease Cancer Hypertension Stroke Physical Exam Const: COMMON NORMALS: alert HENMT: NOSE: Abnormal external nose present (Nasal piercing, redness and purulent drainage) Neck/C-Spine: COMMON NORMALS: full ROM Resp: COMMON NORMALS: normal respiratory effort Cardio: COMMON NORMALS: regular rate RATE: regular rate Extremity: COMMON NORMALS: normal to inspection Neuro: SENSORIUM/ORIENTATION: Yes alert Skin: COMMON NORMALS: turgor normal NARRATIVE SKIN EXAM: Redness and purulent drainage from nasal piercing left nostril GENERAL SKIN EXAM: turgor normal Procedures Foreign Body Removal Site: nare Description of foreign body: other (Nose ring) Sedation/Analgesia: other (Topical lidocaine) Technique: removal with forceps Confirmed by:: direct visualization Complications: none Post-procedure exam: awake, alert Course Vital Signs: Vital signs: Vital Signs Temperature 97.4 F L 02/06/23 20:18 Pulse Rate 92 02/06/23 20:18 Respiratory Rate 17 02/06/23 20:18 Blood Pressure 117/79 02/06/23 20:18 Pulse Oximetry 100 02/06/23 20:18 Oxygen Delivery Me thod Room Air 02/06/23 20:18 MDM - Skin/Abscess/Foreign Bdy Medicial Decision Making Patient comes in for a nasal piercing has become infected. Patient is unable to remove the piercing due to swelling and tenderness. On exam the left naris is slightly swollen with some erythema. Patient has a pustule to the outside part of the nose. Vital signs are normal. Patient appears nontoxic. Differential diagnosis includes foreign body, wound infection, necrotizing fasciitis. No signs of severe illness is noted. Wound was cleaned and lidocaine jelly was applied. Using forceps nasal piercing was removed patient tolerated well. Patient will be started on mupirocin ointment to the wound site and Bactrim orally. Patient reported understanding of care plan and need for follow-up or return. Discharge Plan Discharge Patient Disposition: Home Clinical Impression: Foreign body in skin of nose with infection Condition: Stable Prescriptions: New sulfamethoxazole-trimethoprim 800-160 mg tablet 1 tab PO DAILY 5 Days Qty: 9 0RF No Action Iron (ferrous sulfate) 325 mg (65 mg iron) Tablet 325 mg PO DAILY [id number] 6-dha ibuprofen 800 mg tablet 800 mg PO Q8H Qty: 30 0RF docusate sodium 100 mg Capsule 100 mg PO BID PRN (Reason: constipation) Qty: 30 0RF Naprosyn 500 mg tablet 500 mg PO BID PRN (Reason: pain) Qty: 20 0RF Augmentin 500-125 mg tablet 1 tab PO DAILY Qty: 14 0RF Discharge Orders: Discharge ED (Routine); Ordered 02/06/23 Ordered By: Aaron Valenzuela Discharge Diet: Usual diet Discharge Activity: Increase activity as tolerated Patient Instructions: Puncture Wound (ED) Activity Restrictions/Additional Instructions: Clean wound twice a day with mild soap and water and apply antibiotic ointment. Place antibiotic ointment in both nostrils. Apply antibiotic ointment to the outside of the nostril where the piercing is. Continue treatment until healed. Use acetaminophen and ibuprofen for pain. Follow-up with primary care as needed. Return to ED for worsening symptoms. Coding Level of Care Code ED Project Management Analyst for Jeramy Ponce
[2023-02-06] MEDS: mupirocin oint 22 gm 1 APPLIC TOPICAL (21:07)
--- NOTE | 2023-02-08 13:05 | DCPLANNER ---
social services manager called patient due to no primary care physician - no answer at this time.
== END 2023-02-06 21:10 | disposition home or self-care (01) ==
PROVIDERS: Emergency Provider Nurse Practitioner Family
DX: S00.35XA Superficial foreign body of nose, initial encounter (principal); L08.9 Local infection of the skin and subcutaneous tissue, unspecified; X58.XXXA Exposure to other specified factors, initial encounter
CPT/HCPCS: 99282

== ENCOUNTER 2023-08-28 18:12 | Emergency (ER) | payer MEDICAID, SELFPAY ==
[2023-08-28 18:22] VITALS: BP 143/81; PULSE 124; RESP 16; TEMP 36.6; O2SAT 97; BMI 33.6
--- NOTE | 2023-08-28 18:29 | W.ED.DENTAL ---
HPI - Dental/Oral General: Chief complaint: Dental/Oral Stated complaint: dental pain Time Seen by Provider: 08/28/23 18:15 Source: patient Mode of arrival: ambulatory Limitations: no limitations History of Present Illness: 22-year-old female states she has had dental pain states been chronic in nature she history of meth abuse history of very poor dentition states she supposed to see a dentist in [place] to have a bunch of her teeth removed states you are having pain on the upper left side worsening last 2 days she denies any fevers denies any difficulty swallowing Associated symptoms: Denies fever(s) Review of Systems Const: Denies: fever(s), chills, body aches or change in appetite ENMT: Reports: dental pain; Denies: throat pain Card: Denies: chest pain Resp: Denies: dyspnea GI: Denies: abdominal pain, nausea, vomiting or diarrhea Musc: Denies: neck pain or back pain Skin/Breast: Denies: rash Neuro: Denies: headache(s) PFSH ED PFSH: Medical History No pertinent past medical history Denies diabetes, asthma, hypertension, seizures, DVT/PE Surgical History No pertinent past surgical history Family History Denies family history of Diabetes Clotting disorder Anesthesia complication Bleeding disorder Lung disease Cancer Hypertension Stroke Physical Exam Const: COMMON NORMALS: no acute distress, patient oriented x3 and healthy appearing HENMT: COMMON NORMALS: normocephalic and atraumatic HEAD & SCALP: normocephalic and atraumatic OTHER: Very poor dentition no abscess or trismus Eye: COMMON NORMALS: Equal, round and reactive pupils present and EOMs intact bilaterally PUPIL: Yes Equal, round and reactive pupils present Neck/C-Spine: COMMON NORMALS: full ROM and supple Chest: COMMONS NORMALS: normal inspection of the chest Resp: COMMON NORMALS: normal respiratory effort Cardio: COMMON NORMALS: regular rate, regular rhythm and No murmurs present (Cardio) RATE: regular rate RHYTHM: regular rhythm Extremity: COMMON NORMALS: normal to inspection and full ROM Neuro: COMMON NORMALS: patient oriented x3, moves all extremities and no focal motor deficits Psych: COMMON NORMALS: mental status grossly normal, Normal thought process present and cooperative THOUGHT PROCESS: Normal thought process present Skin: COMMON NORMALS: no rashes or lesions noted and no wounds GENERAL SKIN EXAM: no rashes or lesions noted Course Vital Signs: Vital signs: Vital Signs Temperature 97.9 F 08/28/23 18:22 Pulse Rate 124 H 08/28/23 18:22 Respiratory Rate 16 08/28/23 18:22 Blood Pressure 143/81 08/28/23 18:22 Pulse Oximetry 97 08/28/23 18:22 Oxygen Delivery Me thod Room Air 08/28/23 18:22 MDM - Dental/Oral Medical Decision Making Patient presents with dental pain we will place on pain meds along with Augmentin she is to follow-up with dentist return if worsening she understands agrees with plan Medical Records I reviewed the patient's medical records. No radiology studies performed this visit Discharge Plan Discharge Patient Disposition: Home Clinical Impression: Toothache, Dental caries Condition: Stable Prescriptions: Continued Naprosyn 500 mg tablet 500 mg PO BID PRN (Reason: pain) Qty: 20 0RF Augmentin 500-125 mg tablet 1 tab PO DAILY Qty: 14 0RF No Action Iron (ferrous sulfate) 325 mg (65 mg iron) Tablet 325 mg PO DAILY [id number] 6-dha ibuprofen 800 mg tablet 800 mg PO Q8H Qty: 30 0RF docusate sodium 100 mg Capsule 100 mg PO BID PRN (Reason: constipation) Qty: 30 0RF Discharge Orders: Discharge ED (Routine); Ordered 08/28/23 Ordered By: Renu Johnson Referrals: Nannette Wilson DO [Primary Care Provider] - Discharge Diet: Advance as tolerated Discharge Activity: Resume usual activity Patient Instructions: Toothache (ED) Coding Level of Care Code ED [employer]icated [employer] for Jeramy Ponce
[2023-08-28] MEDS: HYDROcodone-acetaminophen 5-325 mg Tablet 1 TAB PO (18:42)
[2023-08-28] MEDS: amoxicillin-clav 875-125 mg Tablet 1 TAB PO (18:42)
== END 2023-08-28 18:43 | disposition home or self-care (01) ==
PROVIDERS: Emergency Provider Emergency Medicine; PCP Family Medicine
DX: K02.9 Dental caries, unspecified (principal)
CPT/HCPCS: 99283

== ENCOUNTER 2023-09-25 12:59 | Outpatient (CLI) | payer MEDICAID, SELFPAY ==
--- NOTE | 2023-09-25 13:04 | US_ITS ---
WS: [id number] OBSTETRICAL ULTRASOUND COMPLETE HISTORY: ANATOMY CHECK/INSUFFICIENT CARE/HIGH RISK PREGNANC COMPARISON: None available. Single intrauterine gestation in Cephalic presentation. Cervix is Closed and normal length. Cervical length is not well-visualized Normal amount of amniotic fluid surrounds the fetus. Placenta: Anterior, no previa or abruption. Placenta grade 2 Heart: 131 BPM. Four chambers are identified. Poorly visualized outflow tracts due to late gestationa l age. Anatomy: Unremarkable intracranial structures and spine. kidneys, stomach and urinary bladder a re unremarkable. Abdominal wall and cord insertion site are not visualized. Three-vessel cord is iden tified. 4 extremities are present. profile: Unremarkable. Gender: Female. measurements: BPD = 8.0 cm = 32w0d; HC = 30.4 cm = 33w6d; AC = 29.6 cm = 33w4d; FL = 6.5 cm = 33w4d; EFW: 2203 g. Biometry is internally concordant. AGA by ultrasound: 33w2d SAL by ultrasound: 11/11/2023 IMPRESSION: 1. Single intrauterine gestation of 33w2d with an SAL of 11/11/2023. 2. Overall the screening survey is limited due to late gestational age. Poor visualization of the he art and outflow tracts, abdominal wall and cord insertion site. Cervix is not visualized in its entir ety.
== END 2023-09-25 13:00 | disposition home or self-care (01) ==
LOC: RAD 13:00
PROVIDERS: PCP Family Medicine; Visit Provider Family Medicine
DX: O09.33 Supervision of pregnancy with insufficient antenatal care, third trimester (principal); Z3A.33 33 weeks gestation of pregnancy
CPT/HCPCS: 76805

== ENCOUNTER 2023-10-04 21:03 | Outpatient (CLI) | payer MEDICAID, SELFPAY ==
[2023-10-04] VITALS (10 sets, daily range): BP systolic 114–126; BP diastolic 57–73; PULSE 87–96; BMI 37.4
[2023-10-04 21:24] LABS: Glucose Point of Care 109 mg/dL (70-110)
[2023-10-04 22:21] LABS: Glucose Point of Care 104 mg/dL (70-110)
[2023-10-04 23:28] LABS: Estmated Average Glucose 91; Hemoglobin A1C 4.8 % (4.0-6.0)
[2023-10-05 00:01] VITALS: BP 122/59; PULSE 90
[2023-10-05 00:07] VITALS: BP 122/59; PULSE 90; RESP 16
== END 2023-10-05 00:10 | disposition home or self-care (01) ==
LOC: OPOB 21:04 → OBGYN 21:04
PROVIDERS: PCP Family Medicine; Visit Provider Family Medicine
DX: O99.810 Abnormal glucose complicating pregnancy (principal); Z3A.00 Weeks of gestation of pregnancy not specified
CPT/HCPCS: 36415; 36416; 59025; 82962; 83036; 99211

== ENCOUNTER 2023-10-08 11:20 | Outpatient (CLI) | payer MEDICAID, SELFPAY ==
[2023-10-08 11:20] VITALS: BMI 36.8
[2023-10-08 11:31] VITALS: BP 120/76; PULSE 105
--- NOTE | 2023-10-08 11:43 | USR_ITS ---
PROCEDURE INFORMATION: Exam: US Biophysical Profile Without Non-Stress Test Exam date and time: 10/08/2023 12:13 PM Age: 23 years old Clinical indication: Condition or disease; Other: Dm; ; Additional info: Gestional diabetic TECHNIQUE: Imaging protocol: US biophysical profile without non-stress testing. COMPARISON: US OB >= 14 weeks fetus [id number] 09/25/2023 1:16 PM FINDINGS: BIOPHYSICAL PROFILE: breathing movement (BPP): 2 out of 2. body movement (BPP): 2 out of 2. tone (BPP): 2 out of 2. Amniotic fluid (BPP): 2 out of 2. heart rate = 144 bpm amniotic fluid index equals 13.04 cm. US/US OB BPP NST [id number] IMPRESSION: Biophysical profile score is 8 out of 8.
[2023-10-08 11:52] VITALS: BP 131/73; PULSE 99
[2023-10-08 12:45] VITALS: BP 131/73; PULSE 99
== END 2023-10-08 12:45 | disposition home or self-care (01) ==
LOC: OPOB 11:25 → OBGYN 11:26
PROVIDERS: PCP Family Medicine; Visit Provider Family Medicine
DX: O24.419 Gestational diabetes mellitus in pregnancy, unspecified control (principal); Z3A.00 Weeks of gestation of pregnancy not specified
CPT/HCPCS: 59025; 76819; 99211

== ENCOUNTER 2023-10-11 13:30 | Outpatient (CLI) | payer MEDICAID, SELFPAY ==
[2023-10-11 13:39] VITALS: BP 120/72; PULSE 100
[2023-10-11 13:52] VITALS: TEMP 36.1
[2023-10-11 13:55] VITALS: RESP 15; TEMP 36.1
[2023-10-11 14:03] VITALS: BP 115/75; PULSE 91
[2023-10-11 14:05] VITALS: BP 115/75; PULSE 91
== END 2023-10-11 14:05 | disposition home or self-care (01) ==
LOC: OPOB 13:35 → OBGYN 13:36
PROVIDERS: PCP Family Medicine; Visit Provider Family Medicine
DX: O24.419 Gestational diabetes mellitus in pregnancy, unspecified control (principal); Z3A.00 Weeks of gestation of pregnancy not specified
CPT/HCPCS: 59025; 99211

== ENCOUNTER 2023-10-15 15:12 | Outpatient (CLI) | payer MEDICAID, SELFPAY ==
[2023-10-15 15:20] VITALS: RESP 18
[2023-10-15 15:24] VITALS: BP 125/63; PULSE 95
[2023-10-15 15:38] VITALS: BP 128/67; PULSE 90
[2023-10-15 15:54] VITALS: BP 125/73; PULSE 94
[2023-10-15 16:02] VITALS: BP 125/73; PULSE 94
== END 2023-10-15 16:02 | disposition home or self-care (01) ==
LOC: OPOB 15:16 → OBGYN 15:17
PROVIDERS: PCP Family Medicine; Visit Provider Family Medicine
DX: O24.419 Gestational diabetes mellitus in pregnancy, unspecified control (principal); Z3A.00 Weeks of gestation of pregnancy not specified
CPT/HCPCS: 59025; 99211

== ENCOUNTER 2023-10-24 12:52 | Outpatient (CLI) | payer MEDICAID, SELFPAY ==
--- NOTE | 2023-10-24 12:56 | US_ITS ---
WS: [id number] LIMITED OBSTETRICAL ULTRASOUND HISTORY: GESTATIONAL DIABETES/HIGH RISK -3RD TRIMESTER COMPARISON: 09/25/2023, 10/08/2023 Presentation: Vertex. Cervix: Closed and normal length. Placenta: Anterior, no previa or abruption. Grade: 2 HEART: FHR of 153 BPM. measurements: BPD = 8.9 cm = 36w0d; 29% HC = 33.1 cm = 37w5d; 31% AC = 33.5 cm = 37w3d; 64% FL = 7.3 cm = 37w3d; 50% LOLITA: 11.7 cm EFW: 3159 g; 69% AGA by ultrasound: 37w1d SAL by ultrasound: 11/13/2023 Appropriate growth since the first ultrasound from 09/25/2023. No growth asymmetry. IMPRESSION: 1. Single intrauterine gestation of 37 weeks 1 day with an EDC of 11/13/2023. 2. No growth restriction or asymmetry. 3. Normal amniotic fluid. 4. Anterior placenta, grade 2.
== END 2023-10-24 12:53 | disposition home or self-care (01) ==
LOC: RAD 12:53
PROVIDERS: PCP Family Medicine; Visit Provider Family Medicine
DX: O09.893 Supervision of other high risk pregnancies, third trimester (principal); O24.419 Gestational diabetes mellitus in pregnancy, unspecified control; Z3A.37 37 weeks gestation of pregnancy
CPT/HCPCS: 76816

== ENCOUNTER 2023-11-06 19:21 | Inpatient (IN) | payer MEDICAID, SELFPAY ==
[2023-11-06] VITALS (14 sets, daily range): BP systolic 114–129; BP diastolic 57–85; PULSE 87–102; RESP 16–18; TEMP 36.5–36.6; BMI 37.0
--- NOTE | 2023-11-06 11:54 | US_ITS ---
WS: [id number] BIOPHYSICAL PROFILE HISTORY: NST-GDM COMPARISON: 10/24/2023 Presentation: Vertex Cervix: Closed and normal length. Placenta: Anterior, no previa. Grade: 3 HEART: FHR of 138BPM. Biophysical profile: Parameters are as follows: Breathin Movement: 2 Tone: 2 Fluid volume: 2 Amniotic fluid volume is mildly increased as compared to the prior study. There is a single vertical pocket 8.4 cm suggesting polyhydramnios. Amniotic fluid index 22.2 cm. IMPRESSION: 1. Biophysical profile score: 8/8. 2. Amniotic fluid volume is increased. Single vertical pocket of 8.4 cm. 3. Grade 3 placenta.
--- NOTE | 2023-11-06 13:57 | P.HP_ITS ---
Providers/Chief Complaint 2 Primary Care Provider: Nannette Wilson DO Chief Complaint: nst-GDM HPI [employer] History of Present Illness Barbie Paredes is a 23 year old female at 39w 2d based on 33wk US with unknown period presenting for induction of labor with past medical history of methamphetamine abuse, hx preeclampsia. Gestational diabetes as well in this . Denies cramping, LOF, vaginal bleeding. Does report some mild contractions starting this morning. Good movement. care was poor and starting at end of 2nd trimester/early 3rd trimester. She is taking metformin for gestational diabetes and appears reasonably well controlled although patient checks sugars inconsistently. She has attended several visits since establishing however patient is inconsistent in attending appointments and she missed approximately 3 weeks of testing prior to today. She denies recent methamphetamine use however was last positive on UDS on 10/22/23. Present Details : 5 Para: 3 Labs Blood type OB HPI: O (+) positive Rubella: Immune RPR: Negative GBS: Negative HBsAG: Negative Other Lab Information: HCV Ab NR Initial H/H 9.7/28.3 Pap smear NILM GC/Chlam negative 1hr GTT failed 140 3hr GTT failed 96/182/143/46 (2/4 abnormal) Repeat H/H 11.0/32.8 08/22/23 initial UDS negative 10/22/23 UDS positive for amphetamines/methamphetamines Review of Systems 2 Const: Denies: fever(s) or chills Resp: Denies: dyspnea, productive cough or non-productive cough Musc: Denies: extremity swelling Medications/Allergies Home Medications Medication Instructions Recorded Confirmed Last Taken Type ferrous sulfate 325 mg (65 mg 325 mg PO DAILY 02/02/22 10/11/23 10/07/23 20:00 History iron) tablet (Iron (ferrous sulfate)) [id number] 6-dha 1 tab PO DAILY 02/02/22 10/11/23 10/07/23 20:00 History famotidine 20 mg tablet 20 mg PO DAILY 10/11/23 10/11/23 Unknown History metformin 500 mg tablet 500 mg PO BID 10/11/23 10/11/23 Unknown History Allergies Allergy/AdvReac Type Severity Reaction Status Date / Time cephalexin [From Keflex] Allergy ALGY-Rash Verified 10/04/23 23:43 PFSH [employer] 2 PFSH: Medical History No pertinent past medical history Denies diabetes, asthma, hypertension, seizures, DVT/PE Surgical History No pertinent past surgical history Family History Denies family history of Diabetes Clotting disorder Anesthesia complication Bleeding disorder Lung disease Cancer Hypertension Stroke Other Female Reproductive History: Hx Age of Menarche: 13 History History History 2 5 Term 3 0 Miscarriages/Ectopic 1 Living Children 3 Vitals/I&O/Wt Last Vital Signs Resp 17 11/06/23 11:54 O2 Del Method Room Air 11/06/23 11:54 Weight last 48 hrs Weight 216 lb Physical Exam 2 Const: COMMON NORMALS: no acute distress, healthy appearing and alert Resp: COMMON NORMALS: normal respiratory effort and clear to auscultation bilaterally Cardio: COMMON NORMALS: regular rate, regular rhythm, S1 normal heart sound present, S2 normal heart sound present and No murmurs present (Cardio) GI: OTHER: abdomen gravid Extremity: NARRATIVE EXTREMITY EXAM: No LE edema Psych: COMMON NORMALS: cooperative Data 11/06/23 14:34 Results Labs OB ([facility]): 2 Obstetrics US 10/24/23 Obstetrics US/Biophysical Profile Blood Type O Positive 02/02/22 Antibody Screen Negative 02/02/22 Hct 40.3 % (36-47) 11/06/23 Hgb 13.20 g/dL (11.27-16.99) 11/06/23 Rho(D) Type Positive 02/02/22 Plt Count 310 10^3/cmm (157-399) 11/06/23 Hep Bs Antigen Non-reactive (Nonreactive) 02/03/22 Hepatitis C Antibody Non-reactive (Nonreactive) 02/03/22 Hemoglobin A1c 4.8 % (4.0-6.0) 10/04/23 Uric Acid 5.3 mg/dL (2.4-5.7) 02/01/22 HCG, Qual Negative (Negative) 01/02/20 Urine Opiates Screen Negative ng/mL (Negative) 02/02/22 Ur Barbiturates Screen Negative ng/mL (Negative) 02/02/22 Ur Phencyclidine Scrn Negative ng/mL (Negative) 02/02/22 Ur Amphetamines Screen Positive ng/mL (Negative) H 02/02/22 U Benzodiazepines Scrn Negative ng/mL (Negative) 02/02/22 Urine Cocaine Screen Negative ng/mL (Negative) 02/02/22 U Marijuana (THC) Screen Negative ng/mL (Negative) 02/02/22 A&P Assessment and plan (1) Term : (2) Poor patient attendance of care: (3) Maternal anemia in , antepartum: (4) Methamphetamine abuse: (5) Gestational diabetes: (6) Tobacco use: Plan 23 year old female at 39w 2d based on 33wk US with PMHx methamphetamine use, gestational diabetes, hx pre-eclampsia in prior , anemia. Discussed risks and benefits of induction with patient with poor dating and gestational diabetes- she is agreeable to proceed. She did have reactive NST and 8/8 BPP today. US also with some possible mild polyhydramnios and grade 3 placenta. FHT currently Category I. Ramona with irregular contractions q2-4 minutes. SVE 3/50/-3 Admit for induction of labor due to gestational diabetes-presumed controlled on metformin. Routine CBC, Blood typing. Fingerstick glucose. Start low dose pitocin provided Category I FHT. Attestations 2 Medical Necessity Statement*: Barbie Amy Reggie's hospital stay will require greater than 2 midnights for labor and delivery and care Coding Level of Care Code Acute Code for Chg Fwd Diagnoses Term Z34.90 Poor patient attendance of care O09.30 Maternal anemia in , antepartum O99.019 Methamphetamine abuse F15.10 Gestational diabetes O24.419 Tobacco use Z72.0
[2023-11-06 14:59] LABS: Basophils # 0.1 10^3/uL (0.0-0.1); Basophils % 0.5 %; Eosinophils # 0.2 10^3/uL (0.0-0.8); Eosinophils % 1.3 %; Hematocrit 40.3 % (36-47); Lymphocytes % 18.9 %; Mean Corpuscular HGB Conc 32.8 g/dL (30-55); Mean Corpuscular Hemoglobin 30.1 pg (27-33); Mean Corpuscular Volume 91.8 fl (85-98); Mean Platelet Volume 11.3 fL (7.4-10.4); Monocytes # 1.4 10^3/uL (0.2-0.9); Neutrophils # 10.38 10^3/uL (1.8-7.7); Neutrophils % 66.5 %; Nucleated Red Blood Cells % 0 %; Platelet Count 310 10^3/cmm (157-399); Red Blood Count 4.39 10^6/uL (3.85-5.65); Red Cell Distribution Width 15.1 % (12.1-15.1); White Blood Count 15.62 10^3/uL (3.29-11.43)
[2023-11-06] MEDS: dextrose 5%-lactated ringers 1,000 ML 125 ML IV (15:27)
[2023-11-06] MEDS: oxytocin 30 UNIT/500 ML BAG IV (15:27)
--- NOTE | 2023-11-06 16:06 | P.ANESASSM_ITS ---
Pre-Anesthetic Assessment Height/Weight: Height 1.63 m Weight 97.976 kg Resp O2 Del Method 17 Room Air 11/06/23 11:54 11/06/23 11:54 Familial anesthetic complications: none Was Beta Radha taken within 24 hours: N/A Was Clonidine taken within 24 hours: N/A Social Tobacco and No alcohol Exam alert, oriented x 3 and regular rate & rhythm Airway Submandibular: within normal limits Cervical ROM: within normal limits Mallampati: Class II CV/HEM Anemia Metabolic Diabetes Mellitus Anesthetic Plan ASA status: 2 Anesthesia: Regional (specify below) (Labor Epidural) Medications/Allergies Home Medications Medication Instructions Recorded Confirmed Last Taken Type ferrous sulfate 325 mg (65 mg 325 mg PO DAILY 02/02/22 10/11/23 10/07/23 20:00 History iron) tablet (Iron (ferrous sulfate)) 133-[id number] 6-dha 1 tab PO DAILY 02/02/22 10/11/23 10/07/23 20:00 History famotidine 20 mg tablet 20 mg PO DAILY 10/11/23 10/11/23 Unknown History metformin 500 mg tablet 500 mg PO BID 10/11/23 10/11/23 Unknown History Allergies Allergy/AdvReac Type Severity Reaction Status Date / Time cephalexin [From Keflex] Allergy ALGY-Rash Verified 10/04/23 23:43 Current Medications Generic Name Dose Route Start Last Admin Trade Name Freq PRN Reason Stop Dose Admin Dextrose/Lactated Ringer's 1,000 mls @ 125 mls/hr 11/06/23 13:45 11/06/23 15:27 Dextrose 5%-Lactated Ringers IV 125 mls/hr .Q8H WAYNE Administration Oxytocin 30 unit in 500 mls @ 1 mls/hr 11/06/23 13:45 11/06/23 15:27 Pitocin IV 1 milliunit/min .Q24H WAYNE 1 mls/hr Administration Protocol 1 MILLIUNIT/MIN PFSH Anesthesia Medical History No pertinent past medical history Denies diabetes, asthma, hypertension, seizures, DVT/PE Surgical History No pertinent past surgical history Family History Denies family history of Diabetes Clotting disorder Anesthesia complication Bleeding disorder Lung disease Cancer Hypertension Stroke Female Reproductive History : 5 Data Anesthesia 11/06/23 14:34 Short CBC 11/06/23 Range/Units 14:34 WBC 15.62 H (3.29-11.43) 10^3/uL Hgb 13.20 (11.27-16.99) g/dL Hct 40.3 (36-47) % MCV 91.8 (85-98) fl Plt Count 310 (157-399) 10^3/cmm Neut % (Auto) 66.5 % Neut # (Auto) 10.38 H (1.8-7.7) 10^3/uL Cardiac Studies: 2 No Data to Display
[2023-11-06 16:20] LABS: Glucose Point of Care 128 mg/dL (70-110)
[2023-11-06 16:22] LABS: Amphetamines Screen Urine Negative (Negative); Barbiturates Screen Urine Negative (Negative); Benzodiazepines Screen Urine Negative (Negative); Cocaine Screen Urine Negative (Negative); Opiate Screen Urine Negative (Negative); PCP Screen Urine Negative (Negative); THC Screen Urine Negative (Negative)
[2023-11-06 17:47] LABS: Glucose Point of Care 110 mg/dL (70-110)
--- NOTE | 2023-11-06 19:58 | PC.NURSE ---
pt doesn't have custody of other children, hotline call needs to be made
[2023-11-06 21:51] LABS: Glucose Point of Care 143 mg/dL (70-110)
[2023-11-06] MEDS: insulin lispro 100 unit/1 mL SUBCUT (22:39)
[2023-11-06 23:45] LABS: Glucose Point of Care 89 mg/dL (70-110)
[2023-11-07] VITALS (31 sets, daily range): BP systolic 108–151; BP diastolic 55–91; PULSE 65–100; RESP 15–18; TEMP 36.4–36.9; O2SAT 96–99
[2023-11-07] MEDS: lactated ringers 1,000 ML 125 ML IV (00:30)
[2023-11-07] MEDS: calcium carbonate 500 mg Chew Tablet 1000 MG PO (01:44)
[2023-11-07 01:45] LABS: Glucose Point of Care 120 mg/dL (70-110)
[2023-11-07] MEDS: acetaminophen 325 mg Tablet 650 MG PO (02:02)
[2023-11-07 05:35] LABS: Glucose Point of Care 83 mg/dL (70-110)
[2023-11-07] MEDS: lactated ringers 1,000 ML 999 ML IV (07:30)
--- NOTE | 2023-11-07 08:11 | ANES.PROC ---
Anesthesia Procedures Procedure/Date: 11/07/23 Epidural: Time Out Performed: Yes Consents Signed: Procedure Consent Consent: requested by attending/covering physician, from patient, risks and benefits reviewed and patient agrees to proceed Lumbar Level: L3-L4 Epidural position: sitting Epidural procedure: sterile prep of area, 1% lidocaine to numb the area, 18 g needle, neg for paresthesia, test dose given, 1.5% xylocaine 1:200k epi, placed PCEA, no systemic response, sterile dressing applied and 0.2% Ropiavacaine @ mls/hr (10) Additional Comments: MICHI at 7cm, cath at 12cm, bolused 5mls of 2% lido PF
[2023-11-07] MEDS: ROPivacaine syringe 100 MG/50 ML SYRINGE 10 MG EPIDURAL (08:59)
[2023-11-07] MEDS: miSOPROStol 200 mcg Tablet 800 MCG PR (09:03)
[2023-11-07] MEDS: tranexamic acid 1,000 MG/100 ML PREMIX 330 MG IV (09:15)
[2023-11-07] MEDS: lidocaine 2% INJ 20 mL INJECTION (09:20)
[2023-11-07] MEDS: oxytocin 30 UNIT/500 ML BAG 999 UNIT IV (09:20)
--- NOTE | 2023-11-07 09:37 | P.PCNOB_ITS ---
Delivery Note: Date of delivery: November 07, 2023 Pre-delivery diagnoses: Gestational Diabetes Term with suboptimal dating Poor attendance and late care Methamphetamine abuse Mild polyhydramnios Grade 3 placenta Post-delivery diagnoses: Term delivery of viable female Gestational Diabetes Methamphetamine abuse hemorrhage Procedure: Spontaneous vaginal delivery Delivering Physician: Nannette Wilson DO Estimated blood loss (mL): 750 Pre-Delivery Course: She was admitted on 11/06/2023 at 39 weeks and 2 days for induction of labor due to gestational diabetes?presumed controlled on metformin with a history of noncompliance with testing. She also has a history of methamphetamine abuse with positive urine drug screens during outpatient as well as tobacco use. Initial SVE was 3/50/-4. She was started on low-dose Pitocin and titrated appropriately to maximum of 20. She had slow progression with SVE 4/90/-3 and noted to be yulissa every 2 to 4 minutes with category 1 FHT. At this time Pitocin upper limit was raised to 25 and her contractions increased every 2 to 3 minutes with SVE 4.5/90/-3. AROM was then performed at 0719 with moderate amount of light meconium fluid noted and SVE following AROM 6/90/-2. She then received epidural anesthesia and quickly progressed to complete by 0830. Delivery: Patient progressed to complete. Patient placed in lithotomy position. Patient pushed with adequate effort. Head delivered in OP position, no nuchal cord was present. Shoulders and rest of body delivered without difficulty with an adequate epidural anesthesia. Mouth and nares bulb suctioned. Infant was placed on maternal abdomen. Cord clamped and cut after 1 minute delay. was then transferred to the warmer for suctioning. Placenta spontaneously delivered and intact. Pitocin started. Fundus was noted to be firm with massage however noted to have expression of multiple large clots. At this time 800 mcg of Cytotec was placed rectally. The vagina and cervix were inspected and midline second-degree laceration was noted. This was repaired with a 3-0 Vicryl suture with additional 2% lidocaine given for patient comfort. During repair noted to have intermittent small gushes of bleeding. Fundal massage was performed and noted to again express 1-2 large clots. Tranexamic acid was then ordered and uterine sweep was performed with expression of large clots. Following fundus was noted to be firm with minimal bleeding. Female born at 0842 on 11/07/2024 with Apgars 8/9 weighing 8 pounds 13 ounces and measuring 20.75 in length, 14 inch head and 14.5 inches chest Placenta noted to be intact with centrally inserted umbilical cord and three- vessel cord. Complications: Maternal hemorrhage Infant none History History History 5 Term 4 0 Miscarriages/Ectopic 1 Living Children 4 A&P Assessment and plan (1) Spontaneous vaginal delivery: (2) Gestational diabetes: (3) Methamphetamine abuse: Coding Level of Care Code Acute Code for Chg Fwd Diagnoses Spontaneous vaginal delivery O80 Gestational diabetes O24.419 Methamphetamine abuse F15.10
[2023-11-07 10:35] LABS: Amphetamines Screen Urine Negative (Negative); Barbiturates Screen Urine Negative (Negative); Benzodiazepines Screen Urine Negative (Negative); Cocaine Screen Urine Negative (Negative); Opiate Screen Urine Negative (Negative); PCP Screen Urine Negative (Negative); THC Screen Urine Negative (Negative)
--- NOTE | 2023-11-07 16:21 | ANE.PACU2 ---
Inpatient post-anesthesia follow up: Airway intact: Yes Vital signs: Temperature 97.9 F Pulse Rate 78 Respiratory Rate 16 Blood Pressure 117/58 Pulse Oximetry 98 Oxygen Delivery Me thod Room Air Oxygen Flow Rate Fraction of Inspir ed Oxygen Hydration adequate: Yes Nausea and vomiting: No Pain level: 2 Mental status: Baseline Epidural Start/End: Epidural Start Date: 11/07/23 Epidural Start Time: 07:45 Epidural End Date: 11/07/23 Epidural End Time: 09:37
[2023-11-07] MEDS: ibuprofen 800 mg tablet PO ×2 (16:33→20:13)
[2023-11-07] MEDS: lanolin oint 7 gm 1 APPLIC TOPICAL (20:12)
[2023-11-07] MEDS: docusate sodium 100 mg Capsule PO (20:13)
[2023-11-07] MEDS: benzocaine-menthol 78 gm Canister 1 SPRAY TOPICAL (20:13)
[2023-11-07 21:27] LABS: Hematocrit 34.9 % (36-47); Mean Corpuscular HGB Conc 33.5 g/dL (30-55); Mean Corpuscular Hemoglobin 30.4 pg (27-33); Mean Corpuscular Volume 90.6 fl (85-98); Platelet Count 247 10^3/cmm (157-399); Red Blood Count 3.85 10^6/uL (3.85-5.65); Red Cell Distribution Width 14.7 % (12.1-15.1); White Blood Count 16.21 10^3/uL (3.29-11.43)
[2023-11-08 04:00] VITALS: BP 150/88; PULSE 91; RESP 20; TEMP 36.8; O2SAT 94
[2023-11-08] MEDS: ibuprofen 800 mg tablet PO ×2 (08:52→15:34)
[2023-11-08] MEDS: docusate sodium 100 mg Capsule PO (08:52)
[2023-11-08] MEDS: prenatal vitamin Capsule 1 CAP PO (08:53)
[2023-11-08] MEDS: medroxyprogesterone 150 mg/ml SDV 1 mL IM (09:27)
[2023-11-08 10:08] VITALS: BP 135/90; PULSE 91; RESP 17; TEMP 37.1; O2SAT 94
[2023-11-08] MEDS: calcium carbonate 500 mg Chew Tablet 1000 MG PO (11:49)
[2023-11-08 18:00] VITALS: BP 140/88; PULSE 97; RESP 18; TEMP 36.9; O2SAT 94
--- NOTE | 2023-11-08 18:25 | P.DS_ITS ---
Discharge Providers [employer] ATTORNEY Date of Admission: 11/06/23 19:21 Date of Discharge: 11/08/23 Attending Provider at Admission: Nannette Wilson DO Attending Provider at Discharge: Nannette Wilson DO Primary Care Provider: Nannette Wilson DO Diagnoses at Discharge Discharge Diagnosis (1) Spontaneous vaginal delivery: Status: Acute (2) Gestational diabetes: Status: Inactive (3) Methamphetamine abuse: Status: Acute Reason for Visit Reason for Visit: nst-GDM Hospital Course Hospital Course Estimated blood loss (mL): 750 Pre-Delivery Course: She was admitted on 11/06/2023 at 39 weeks and 2 days for induction of labor due to gestational diabetes?presumed controlled on metformin with a history of noncompliance with testing. She also has a history of methamphetamine abuse with positive urine drug screens during outpatient as well as tobacco use. Initial SVE was 3/50/-4. She was started on low-dose Pitocin and titrated appropriately to maximum of 20. She had slow progression with SVE 4/90/-3 and noted to be yulissa every 2 to 4 minutes with category 1 FHT. At this time Pitocin upper limit was raised to 25 and her contractions increased every 2 to 3 minutes with SVE 4.5/90/-3. AROM was then performed at 0719 with moderate amount of light meconium fluid noted and SVE following AROM 6/90/-2. She then received epidural anesthesia and quickly progressed to complete by 0830. Delivery: Patient progressed to complete. Patient placed in lithotomy position. Patient pushed with adequate effort. Head delivered in OP position, no nuchal cord was present. Shoulders and rest of body delivered without difficulty with an adequate epidural anesthesia. Mouth and nares bulb suctioned. Infant was placed on maternal abdomen. Cord clamped and cut after 1 minute delay. was then transferred to the warmer for suctioning. Placenta spontaneously delivered and intact. Pitocin started. Fundus was noted to be firm with massage however noted to have expression of multiple large clots. At this time 800 mcg of Cytotec was placed rectally. The vagina and cervix were inspected and midline second-degree laceration was noted. This was repaired with a 3-0 Vicryl suture with additional 2% lidocaine given for patient comfort. During repair noted to have intermittent small gushes of bleeding. Fundal massage was performed and noted to again express 1-2 large clots. Tranexamic acid was then ordered and uterine sweep was performed with expression of large clots. Following fundus was noted to be firm with minimal bleeding. Female born at 0842 on 11/07/2024 with Apgars 8/9 weighing 8 pounds 13 ounces and measuring 20.75 in length, 14 inch head and 14.5 inches chest Placenta noted to be intact with centrally inserted umbilical cord and three- vessel cord. Complications: Maternal hemorrhage Infant none course: Patient underwent on 11/07/2023. course was uncomplicated. Following delivery patient ambulated well, tolerated a normal diet without nausea or vomiting. Pain was well-controlled on PO medications, breast and formula feeding, no leg/calf pain, no calf/leg swelling, normal urination, passing gas and normal bowel movements. Vaginal bleeding thin lochia and decreasing. labs significant for hemoglobin of 11.7 down from 13.3 on admission. control was discussed and patient prefers Depo shot?1 dose given prior to discharge. Of note infant is taken [facility] custody prior to patient discharge. Follow-up planned for 2 and 6 weeks . Her metformin is discontinued but she will require testing for diabetes at 6 weeks . Warning signs for endometritis, pre-eclampsia, DVT/PE, mastitis were reviewed, discussed additional warning signs including increased vaginal bleeding, worsening abdominal pain. Pelvic rest and activity precautions reviewed as well. She is discharged on 11/08/2023 in stable condition. Information Peripartum Data: Delivery Method: Vaginal Physical Exam Const: COMMON NORMALS: no acute distress and alert HENMT: TEETH & GINGIVA: Yes caries and Yes poor dentition Resp: COMMON NORMALS: normal respiratory effort and clear to auscultation bilaterally AUSCULTATION: clear to auscultation bilaterally Cardio: COMMON NORMALS: regular rate, regular rhythm, S1 normal heart sound present, S2 normal heart sound present and No murmurs present (Cardio) RATE: regular rate RHYTHM: regular rhythm HEART SOUNDS: S1 normal heart sound present and S2 normal heart sound present Extremity: NARRATIVE EXTREMITY EXAM: No LE edema Neuro: SENSORIUM/ORIENTATION: Yes alert Psych: COMMON NORMALS: cooperative History History History 5 Term 4 0 Miscarriages/Ectopic 1 Living Children 4 Discharge Data Studies Completed and Pending Completed Studies During Hospitalization Category Date Time Status US OB BPP wo NST 24658 Stat Ultrasound 11/06/23 11:54 Completed Laboratory Results WBC 16.21 10^3/uL (3.29-11.43) H 11/07/23 21:22 RBC 3.85 10^6/uL (3.85-5.65) 11/07/23 21:22 Hgb 11.70 g/dL (11.27-16.99) 11/07/23 21:22 Hct 34.9 % (36-47) L 11/07/23 21:22 MCV 90.6 fl (85-98) 11/07/23 21:22 MCH 30.4 pg (27-33) 11/07/23 21: MCHC 33.5 g/dL (30-55) 11/07/23 21:22 RDW 14.7 % (12.1-15.1) 11/07/23 21:22 Plt Count 247 10^3/cmm (157-399) 11/07/23 21:22 MPV 11.0 fL (7.4-10.4) H 11/07/23 21:22 Neut % (Auto) 66.5 % 11/06/23 14:34 Lymph % (Auto) 18.9 % 11/06/23 14:34 [place] % (Auto) 9.0 % 11/06/23 14:34 Eos % (Auto) 1.3 % 11/06/23 14:34 Baso % (Auto) 0.5 % 11/06/23 14:34 Neut # (Auto) 10.38 10^3/uL (1.8-7.7) H 11/06/23 14:34 Lymph # (Auto) 3.0 10^3/uL (0.8-4.8) 11/06/23 14:34 [place] # (Auto) 1.4 10^3/uL (0.2-0.9) H 11/06/23 14:34 Eos # (Auto) 0.2 10^3/uL (0.0-0.8) 11/06/23 14:34 Baso # (Auto) 0.1 10^3/uL (0.0-0.1) 11/06/23 14:34 Nucleated RBC % (auto) 0 % 11/06/23 14:34 Nucleated RBCs # 0.0 /100WBC 11/06/23 14:34 POC Glucose 83 mg/dL (70-110) 11/07/23 05:32 Urine Opiates Screen Negative ng/mL (Negative) 11/07/23 09:55 Ur Barbiturates Screen Negative ng/mL (Negative) 11/07/23 09:55 Ur Phencyclidine Scrn Negative ng/mL (Negative) 11/07/23 09:55 Ur Amphetamines Screen Negative ng/mL (Negative) 11/07/23 09:55 U Benzodiazepines Scrn Negative ng/mL (Negative) 11/07/23 09:55 Urine Cocaine Screen Negative ng/mL (Negative) 11/07/23 09:55 U Marijuana (THC) Screen Negative ng/mL (Negative) 11/07/23 09:55 Blood Type O Positive 11/06/23 14:34 Rho(D) Type Rh positive 11/06/23 14:34 Antibody Screen Negative 11/06/23 14:34 Vitals Last Vital Signs Temp 98.7 F 11/08/23 10:08 Pulse 91 11/08/23 10:08 Resp 17 11/08/23 10:08 BP 135/90 11/08/23 10:08 Pulse Ox 94 11/08/23 10:08 O2 Del Method Room Air 11/08/23 10:08 Results Labs OB ([facility]): Obstetrics US 10/24/23 Obstetrics US/Biophysical Profile Blood Type O Positive 11/06/23 Antibody Screen Negative 11/06/23 Hct 34.9 % (36-47) L 11/07/23 Hgb 11.70 g/dL (11.27-16.99) 11/07/23 Rho(D) Type Rh positive 11/06/23 Plt Count 247 10^3/cmm (157-399) 11/07/23 Hep Bs Antigen Non-reactive (Nonreactive) 02/03/22 Hepatitis C Antibody Non-reactive (Nonreactive) 02/03/22 Hemoglobin A1c 4.8 % (4.0-6.0) 10/04/23 Uric Acid 5.3 mg/dL (2.4-5.7) 02/01/22 HCG, Qual Negative (Negative) 01/02/20 Urine Opiates Screen Negative ng/mL (Negative) 11/07/23 Ur Barbiturates Screen Negative ng/mL (Negative) 11/07/23 Ur Phencyclidine Scrn Negative ng/mL (Negative) 11/07/23 Ur Amphetamines Screen Negative ng/mL (Negative) 11/07/23 U Benzodiazepines Scrn Negative ng/mL (Negative) 11/07/23 Urine Cocaine Screen Negative ng/mL (Negative) 11/07/23 U Marijuana (THC) Screen Negative ng/mL (Negative) 11/07/23 Discharge Plan Discharge Patient Disposition: Home Condition: Stable Prescriptions: New ibuprofen 800 mg Tablet 800 mg PO TID Qty: 90 0RF docusate sodium 100 mg Capsule 100 mg PO BID Qty: 60 0RF Continued ferrous sulfate [Iron (ferrous sulfate)] 325 mg (65 mg iron) Tablet 325 mg PO DAILY [id number] 1 tab PO DAILY famotidine 20 mg Tablet 20 mg PO DAILY Discontinued metformin 500 mg Tablet 500 mg PO BID Discharge Orders: Discharge Order (Routine); Ordered 11/08/23 Ordered By: Nannette Wilson Referrals: Nannette Wilson DO [Primary Care Provider] - 11/21/23 2:45 pm (Your [address] Wilson will be Sunday December 24, 2023 at 2:45 p.m.) Discharge Diet: Usual diet Discharge Activity: Increase activity as tolerated Patient Instructions: Depression (DC), Bleeding (DC), Preeclampsia and Eclampsia After Delivery (GEN), Hemorrhage (DC), OB Discharge Report, OB Food/Drug Interaction Guide, Opioid Safety, OB Home Care, OB Proud Parent Packet, OB Vaginal Deliveries Activity Restrictions/Additional Instructions: Pelvic rest for 6 weeks Discharge Attestations [employer] ATTORNEY Time Spent in Discharge Care*: greater than 30 min Coding Level of Care Code Acute Code for Chg Fwd Diagnoses Spontaneous vaginal delivery O80 Gestational diabetes O24.419 Methamphetamine abuse F15.10
== END 2023-11-08 18:00 | disposition home or self-care (01) | DRG 768 ==
LOC: OPOB 19:24 → OBGYN 19:24
PROVIDERS: Admitting Provider Family Medicine; PCP Family Medicine; Visit Provider Family Medicine
DX: O40.3XX0 Polyhydramnios, third trimester, not applicable or unspecified (principal); Z37.0 Single live birth; O99.324 Drug use complicating childbirth; O72.1 Other immediate postpartum hemorrhage; F15.90 Other stimulant use, unspecified, uncomplicated; O99.334 Smoking (tobacco) complicating childbirth; O24.425 Gestational diabetes mellitus in childbirth, controlled by oral hypoglycemic drugs; Z3A.39 39 weeks gestation of pregnancy; F17.290 Nicotine dependence, other tobacco product, uncomplicated; O77.0 Labor and delivery complicated by meconium in amniotic fluid
CPT/HCPCS: 36415; 36416; 59025; 59409; 76819; 80306; 82962; 85025; 85027; 86850; 86900; 96372; 99211; J1050; J1815; J2590; J2795; J7120; J7121

== ENCOUNTER 2024-12-26 04:41 | Emergency (ER) | payer SELFPAY ==
[2024-12-26 04:55] VITALS: BP 132/70; PULSE 87; RESP 16; O2SAT 97
--- NOTE | 2024-12-26 04:55 | W.ED.DENTAL ---
HPI - Dental/Oral General: Chief complaint: Dental/Oral Stated complaint: right side of face swollen, dental pain Time Seen by Provider: 12/26/24 04:47 History of Present Illness: This patient is a 24-year-old white female who presents to the emergency department complaining of right upper toothache with swelling of the right cheek. She states it started a couple of days ago. No fever. Related Data Previous Rx's ?Medication ?Instructions ?Recorded ibuprofen 800 mg tablet 800 mg PO TID #90 tabs 11/08/23 clindamycin HCl 300 mg capsule 300 mg PO QID 10 days #40 caps 12/26/24 Allergies Allergy/AdvReac Type Severity Reaction Status Date / Time cephalexin (From [employer]) Allergy ALGY-Rash Verified 10/04/23 23:43 Review of Systems General: Reports: 10 or more systems reviewed and unremarkable except in HPI and below ENMT: Reports: dental pain [facility] ED PFSH: Medical History No pertinent past medical history Denies diabetes, asthma, hypertension, seizures, DVT/PE Surgical History No pertinent past surgical history Family History Denies family history of Diabetes Clotting disorder Anesthesia complication Bleeding disorder Lung disease Cancer Hypertension Stroke Social History Smoking and tobacco/nicotine status: never used tobacco/nicotine Physical Exam Const: COMMON NORMALS: no acute distress, patient oriented x3 and no limitations GENERAL APPEARANCE: cooperative and comfortable HENMT: COMMON NORMALS: normocephalic, atraumatic, Normal nasal mucous membranes and turbinates present and moist oral mucous membranes HEAD & SCALP: normal to inspection, normocephalic and atraumatic FACE & SINUS: normal facial exam NOSE: Normal nasal mucous membranes and turbinates present TEETH & GINGIVA: Yes other (Widespread dental decay.) Eye: COMMON NORMALS: Equal, round and reactive pupils present, EOMs intact bilaterally and conjunctivae normal GENERAL EYE: appearance normal, both eyes and all related structures CONJUNCTIVA: Yes conjunctivae normal PUPIL: Yes Equal, round and reactive pupils present Neck/C-Spine: COMMON NORMALS: supple and no JVD Chest: COMMONS NORMALS: normal inspection of the chest Resp: COMMON NORMALS: normal respiratory effort and clear to auscultation bilaterally AUSCULTATION: clear to auscultation bilaterally Cardio: COMMON NORMALS: no JVD, regular rate, regular rhythm, No gallops present (Cardio), No murmurs present (Cardio) and No rub (Cardio) RATE: regular rate RHYTHM: regular rhythm GI: COMMON NORMALS: Normal to inspection, nondistended, normoactive bowel sounds present, Soft to palpation and non-tender AUSCULTATION: Yes normoactive bowel sounds PALPATION: Yes Soft to palpation : COMMON NORMALS: Yes no CVA tenderness BLADDER/KIDNEY EXAM: Yes no CVA tenderness Back/Pelvis: COMMON NORMALS: no CVA tenderness and thoracic and lumbar spine normal to inspection Extremity: COMMON NORMALS: normal to inspection Neuro: COMMON NORMALS: patient oriented x3 and CN's II-XII intact bilaterally Psych: COMMON NORMALS: mental status grossly normal, Normal thought process present and cooperative THOUGHT PROCESS: Normal thought process present Skin: COMMON NORMALS: no rashes or lesions noted, turgor normal and no jaundice GENERAL SKIN EXAM: no rashes or lesions noted and turgor normal MDM - Dental/Oral Medical Decision Making Patient placed on clindamycin and given her first dose in the emergency department. Recommended she follow-up with her dentist soon as possible for ongoing management. No radiology studies performed this visit Discharge Plan Discharge Patient Disposition: Home Clinical Impression: Dental caries, Toothache Condition: Stable Prescriptions: New clindamycin HCl 300 mg capsule 300 mg PO QID 10 Days Qty: 40 0RF Discontinued amoxicillin-pot clavulanate 875-125 mg tablet 1 tab PO BID 7 Days Qty: 14 0RF No Action ibuprofen 800 mg Tablet 800 mg PO TID Qty: 90 0RF Discharge Orders: Discharge ED (Routine); Ordered 12/26/24 Ordered By: Navin Palma Referrals: Nannette Wilson DO [Primary Care Provider] - Patient Instructions: Dental Caries (Cavities) Activity Restrictions/Additional Instructions: Follow-up with your dentist to soon as possible. Print Language: Welsh Coding Level of Care Code ED Hr Operations Advisor for Jeramy Ponce
[2024-12-26] MEDS: clindamycin 150 mg Capsule 300 MG PO (05:12)
[2024-12-26 05:21] VITALS: BP 128/81; PULSE 86; RESP 16; O2SAT 99
== END 2024-12-26 05:25 | disposition home or self-care (01) ==
PROVIDERS: Emergency Provider Emergency Medicine; PCP Family Medicine
DX: K02.9 Dental caries, unspecified (principal); K08.89 Other specified disorders of teeth and supporting structures
CPT/HCPCS: 99283; J9999